=== PATIENT | female | born 1995 | race Caucasian/White ===

== ENCOUNTER 2021-10-03 07:51 | Outpatient (CLI) | payer OTHER, SELFPAY ==
[2021-10-03 08:42] LABS: Basophils Percent Auto 0.2 % (0.2-1.2); Eosinophils Absolute Auto 0.1 K/mm3 (0-0.3); Eosinophils Percent Auto 1.6 % (0-4.4); Hematocrit 44.2 % (37.0-47.0); Hemoglobin 14.3 g/dL (12.0-15.0); Immature Granulocyte Absolute 0.03 K/mm3 (0.00-0.031); Immature Granulocyte Percent A 0.4 % (0-0.5); Lymphocytes Absolute Auto 1.34 K/mm3 (0.9-3.2); Lymphocytes Percent Auto 16.7 % (18.3-44.2); Mean Corpuscular HGB Conc 32.4 g/dl (32-36); Mean Corpuscular Hemoglobin 29.5 pg (26-34); Mean Corpuscular Volume 91.3 fl (80-100); Mean Platelet Volume 9.9 fl (7.4-10.4); Monocytes Absolute Auto 0.4 K/mm3 (0.1-0.6); Monocytes Percent Auto 4.9 % (2.6-8.5); Neutrophils Absolute Auto 6.1 K/mm3 (1.3-6.7); Neutrophils Percent Auto 76.2 % (45.5-73.1); Platelet Count Result 237 k/mm3 (150-375); Red Blood Count 4.84 M/mm3 (4.2-5.4); Red Cell Distribution Width 12.5 % (11.5-14.5)
[2021-10-03 08:58] LABS: Alanine Aminotransferase 22 U/L (6-35); Albumin Level 4.5 g/dL (3.5-5.1); Alkaline Phosphatase 74 U/L (38-126); Anion Gap 11 mmol/L (8-16); Aspartate Amino Transferase 20 U/L (14-36); Bilirubin,Total 0.4 mg/dL (0.2-1.3); Blood Urea Nitrogen 10 mg/dL (7-17); Calcium 9.8 mg/dL (8.4-10.2); Carbon Dioxide 21 mmol/L (22-30); Chloride 104 mmol/L (98-107); Cholesterol 233 mg/dL (0-200); Estimated Glomerular Filt Rate > 60; Glucose 102 mg/dL (65-110); HDL Direct 66 mg/dL; Magnesium 2.1 mg/dL (1.6-2.3); Potassium 4.2 mmol/L (3.4-5.0); Sodium 136 mmol/L (137-145); Triglycerides 186 mg/dL (<150)
[2021-10-03 09:09] LABS: LDL Cholesterol Direct 108 mg/dL
[2021-10-03 09:18] LABS: Vitamin D 25 Hydroxy 58.4 ng/mL
[2021-10-07 10:40] LABS: Red Blood Cell Folate 615 ng/mL RBC (>280)
== END 2021-10-03 07:52 | disposition home or self-care (01) ==
PROVIDERS: PCP Physician Assistant Medical; Visit Provider Physician Assistant Medical
DX: R00.2 Palpitations (principal); E55.9 Vitamin D deficiency, unspecified; E66.9 Obesity, unspecified
CPT/HCPCS: 36415; 80053; 80061; 82306; 82607; 82747; 83735; 84443; 85025

== ENCOUNTER 2024-09-13 04:55 | Inpatient (IN) | payer BC, OTHER, SELFPAY ==
[2024-09-13] VITALS (178 sets, daily range): BP systolic 86–150; BP diastolic 41–101; PULSE 68–153; RESP 14–20; TEMP 36.1–37.2; O2SAT 94–100; BMI 43.4
--- OUTSIDE RECORDS SUMMARY | 2024-09-13 05:12 | XMS_ITS | Data Portability ---
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 Discussed plan. Not available 09/08/2024 12:08:01 Plan of Treatment Reminders Order Date Submit Date Provider Last Modified By Organization Details Last Modified Time Details Appointments INDUCTI ON 2024 05:00A M Samantha Elils CNM Not available Not available Not available U/S OB BPP 2024 10:00A M ULTRASOUND Not available Not available Not available NST 2024 10:30A M NST SCHEDULE Not available Not available Not available OB ROUTINE 2024 11:00A M Samantha Ellis CNM Not available Not available Not available Lab None recorde d. Referral None recorde d. Procedures None recorde d. Surgeries None recorde d. Imaging non-str ess test 2024 025 [email or web address], [address], [place], [address], 09/10/2024 22:04:32 US, obstetr ic, biophys ical profile + non-str ess test 2024 025 [email or web address], [address], [place], [address], 09/09/2024 23:34:31 non-str ess test 2024 025 [email or web address] [address], [address], [place], [address], 09/03/2024 15:01:00 US, obstetr ic, follow- up 2024 [address], [address], [place], [address], 09/01/2024 21:58:37 US, obstetr ic, biophys ical profile + non-str ess test 2024 025 [email or web address], [address], [place], [address], 09/01/2024 21:58:37 Medication Orders None recorde d. Patient TargetsNo targets recorded. Patient InstructionsNo instructions recorded. Reason for Referral None Reported. Results Created Date Observation Date Name Description Value Unit Range Abnormal Flag Note LastModifiedBy Organization Detail LastModifiedTime 08/05/1908/04/2024 CBC W/DIF F WBC 11.4 10'3/ uL 3.5-10 .5 high Not Available [facility] (Lab) [address], [place], [address], 08/05/2024 09:22:27 08/05/1908/04/2024 CBC W/DIF F RBC 4.13 10'6/ uL (based on docume nted legal sex) 3.80-5 .20 Not Available [facility] (Lab) [address], [place], [address], 08/05/2024 09:22:27 08/05/1908/04/2024 CBC W/DIF F HGB 12.1 g/dL (based on docume nted legal sex) 11.6-1 5.4 Not Available [facility] (Lab) [address], [place], [address], 08/05/2024 09:22:27 08/05/1908/04/2024 CBC W/DIF F HCT 37.7 % (based on docume nted legal sex) 34.0-4 5.0 Not Available [facility] (Lab) [address] [facility], [place], [address], 08/05/2024 09:22:27 08/05/19 25 08/04/2024 CBC W/DIF F MCV 91.3 fL 80.0-9 9.0 Not Available [facility] (Lab) [address] [facility], [place], [address], 08/05/2024 09:22:27 08/05/19 25 08/04/2024 CBC W/DIF F MCH 29.3 pg 27.0-3 4.0 Not Available [facility] (Lab) [address] [facility], [place], [address], 08/05/2024 09:22:27 08/05/19 25 08/04/2024 CBC W/DIF F MCHC 32.1 g/dL 32.0-3 5.5 Not Available [facility] (Lab) [address] [facility], [place], [address], 08/05/2024 09:22:27 08/05/1908/04/2024 CBC W/DIF F RDW 14.4 % 11.0-1 5.0 Not Available [facility] (Lab) [address] [facility], [place], [address], 08/05/2024 09:22:27 08/05/19 25 08/04/2024 CBC W/DIF F plt 223 10'3/ uL 150-40 0 Not Available [facility] (Lab) [address] [facility], [place], [address], 08/05/2024 09:22:27 06/13/20 25 08/04/2024 CBC W/DIF F MPV 11.6 fL 8.8-12 .1 Not Available [facility] (Lab) [address] [facility], [place], [address], 08/05/2024 09:22:27 08/05/1908/04/2024 CBC W/DIF F NRBC's 0.0 % 0.0 Not Available [facility] (Lab) [address] [facility], [place], [address], 08/05/2024 09:22:27 08/05/19 25 08/04/2024 CBC W/DIF F absolute NRBCs 0.0 10'3/ uL no refere nce range establ ished Not Available [facility] (Lab) [address], [place], [address], 08/05/2024 09:22:27 08/05/1908/04/2024 CBC W/DIF F neutrophils 79.7 % 34.0-7 3.0 high Not Available [facility] (Lab) [address] [facility], [place], [address], 08/05/2024 09:22:27 08/05/1908/04/2024 CBC W/DIF F lymphocytes 12.8 % 15.0-5 0.0 low Not Available [facility] (Lab) [address] [facility], [place], [address], 08/05/2024 09:22:27 08/05/1908/04/2024 CBC W/DIF F monocytes 5.5 % 1.0-15 .0 Not Available [facility] (Lab) [address] [facility], [place], [address], 08/05/2024 09:22:27 08/05/1908/04/2024 CBC W/DIF F eosinophils 0.7 % 0.0-8. 0 Not Available [facility] (Lab) [address] [facility], [place], [address], 08/05/2024 09:22:27 08/05/1908/04/2024 CBC W/DIF F basophils 0.1 % 0.0-2. 0 Not Available [facility] (Lab) [address], [place], [address], 08/05/2024 09:22:27 08/05/19 25 08/04/2024 CBC W/DIF F immature granulocytes 1.2 % no define d refere nce range Immat ure Granu locyt es (IG) repre sents autom ated enume ratio n of Metam yeloc ytes, Myelo cytes and Promy elocy eugenia when IG is < 5%. Blast s are not inclu ded in IG and repor amanda separ ately if prese nt. Not Available [facility] (Lab) [address], [place], [address], 08/05/2024 09:22:27 08/05/1908/04/2024 CBC W/DIF F absolute neutrophils 9.1 10'3/ uL 1.5-8. 0 high Not Available [facility] (Lab) [address], [place], [address], 08/05/2024 09:22:27 08/05/19 25 08/04/2024 CBC W/DIF F absolute lymphocytes 1.5 10'3/ uL 1.0-4. 0 Not Available [facility] (Lab) [address], [place], [address], 08/05/2024 09:22:27 08/05/1908/04/2024 CBC W/DIF F absolute monocytes 0.6 10'3/ uL 0.2-1. 0 Not Available [facility] (Lab) [address] [place], [address], 08/05/2024 09:22:27 08/05/19 25 08/04/2024 CBC W/DIF F absolute eosinophils 0.1 10'3/ uL 0.0-0. 6 Not Available [facility] (Lab) [address], [place], [address], 08/05/2024 09:22:27 08/05/19 25 08/04/2024 CBC W/DIF F absolute basophils 0.0 10'3/ uL 0.0-0. 3 Not Available [facility] (Lab) [address] [facility], [place], [address], 08/05/2024 09:22:27 08/05/19 25 08/04/2024 CBC W/DIF F absolute immature granulocytes 0.1 10'3/ uL 0.00-0 .10 Refer ence range s for nonbi nary/ inter sex or unspe cifie d gende r patie nts have not been estab lishe d. Pleas e refer to the nurys wing table for range s estab lishe d for cisge nder patie nts and evalu ate in the clini marcel yuliana xt of the indiv idual patie nt: https ://ze kong book. nm.or g/gen derx Not Available [facility] (Lab) [address] [facility], [place], [address], 08/05/2024 09:22:27 08/05/19 25 08/04/2024 CMP(C OMPRE HENSI VE METAB OLIC PANEL ) sodium 136 mmol/ L 133-14 6 Not Available [facility] (Lab) [address] [facility], [place], [address], 08/05/2024 09:22:27 08/05/19 25 08/04/2024 CMP(C OMPRE HENSI VE METAB OLIC PANEL ) potassium 3.8 mmol/ L 3.5-5. 1 Not Available [facility] (Lab) [address] [facility], [place], [address], 08/05/2024 09:22:27 08/05/19 25 08/04/2024 CMP(C OMPRE HENSI VE METAB OLIC PANEL ) chloride 104 mmol/ L 98-107 Not Available [facility] (Lab) [address] [facility], [place], [address], 08/05/2024 09:22:27 08/05/19 25 08/04/2024 CMP(C OMPRE HENSI VE METAB OLIC PANEL ) carbon dioxide 26 mmol/ L 21-31 Not Available [facility] (Lab) [address], [place], [address], 08/05/2024 09:22:27 08/05/19 25 08/04/2024 CMP(C OMPRE HENSI VE METAB OLIC PANEL ) anion gap 6 mmol/ L 4-13 Not Available [facility] (Lab) [address], [place], [address], 08/05/2024 09:22:27 08/05/19 25 08/04/2024 CMP(C OMPRE HENSI VE METAB OLIC PANEL ) blood urea nitrogen 8 mg/dL 7-[address] [facility] (Lab) [address], [place], [address], 08/05/2024 09:22:27 08/05/19 25 08/04/2024 CMP(C OMPRE HENSI VE METAB OLIC PANEL ) creatinine 0.53 mg/dL 0.60-1 .30 low Not Available [facility] (Lab) [address], [place], [address], 08/05/2024 09:22:27 08/05/19 25 08/04/2024 CMP(C OMPRE HENSI VE METAB OLIC PANEL ) egfrcr (CKD-epi 2020) >90 mL/mi n/1.7 3_m2 >=60 Not Available [facility] (Lab) [address], [place], [address], 08/05/2024 09:22:27 08/05/19 25 08/04/2024 CMP(C OMPRE HENSI VE METAB OLIC PANEL ) calcium 9.3 mg/dL 8.3-10 .5 Not Available [facility] (Lab) [address], [place], [address], 08/05/2024 09:22:27 08/05/19 25 08/04/2024 CMP(C OMPRE HENSI VE METAB OLIC PANEL ) glucose 102 mg/dL 70-100 high Not Available [facility] (Lab) [address] [facility], [place], [address], 08/05/2024 09:22:27 08/05/19 25 08/04/2024 CMP(C OMPRE HENSI VE METAB OLIC PANEL ) protein, total 6.2 g/dL 6.4-8. 3 low Not Available [facility] (Lab) [address] [facility], [place], [address], 08/05/2024 09:22:27 08/05/19 25 08/04/2024 CMP(C OMPRE HENSI VE METAB OLIC PANEL ) albumin 3.7 g/dL 3.5-5. 0 Not Available [facility] (Lab) [address] [place], [address], 08/05/2024 09:22:27 08/05/19 25 08/04/2024 CMP(C OMPRE HENSI VE METAB OLIC PANEL ) ALT 8 units /L 9-43 low Not Available [facility] (Lab) [address] [place], [address], 08/05/2024 09:22:27 08/05/19 25 08/04/2024 CMP(C OMPRE HENSI VE METAB OLIC PANEL ) alkaline phosphatase 101 units /L 34-104 Not Available [facility] (Lab) [address] [place], [address], 08/05/2024 09:22:27 08/05/19 25 08/04/2024 CMP(C OMPRE HENSI VE METAB OLIC PANEL ) AST 10 units /L 13-39 low Not Available [facility] (Lab) [address] [place], [address], 08/05/2024 09:22:27 08/05/19 25 08/04/2024 CMP(C OMPRE HENSI VE METAB OLIC PANEL ) bilirubin, total 0.2 mg/dL 0.2-1. 2 Not Available [facility] (Lab) [address] [facility], [place], [address], 08/05/2024 09:22:27 08/05/1908/04/2024 URIC ACID uric acid 4.3 mg/dL 2.3-6. 6 Not Available [facility] (Lab) [address] [facility], [place], [address], 08/05/2024 09:22:28 08/05/19 25 08/04/2024 PROTE IN/CR EATIN INE RATIO , URINE creatinine, urine 161.7 mg/dL R-No refer ence range estab lishe d for this assay Not Available [facility] (Lab) [address] [facility], [place], [address], 08/05/2024 09:22:28 08/05/19 25 08/04/2024 PROTE IN/CR EATIN INE RATIO , URINE protein, urine 21 mg/dL R-No refer ence range estab lishe d for this assay Not Available [facility] (Lab) [address] [place], [address], 08/05/2024 09:22:28 08/05/19 25 08/04/2024 PROTE IN/CR EATIN INE RATIO , URINE protein/crea tinine ratio, urine 0.13 . No Refer ence Range avail able for Rando m Urine s. A prote in to creat inine ratio of >=0.1 9 is a good predi ctor of signi fican t prote inuri a. A level of <0.14 can rule out signi fican t prote inuri a. Not Available [facility] (Lab) [address] [place], [address], 08/05/2024 09:22:28 08/19/19 25 08/18/2024 CULTU RE: GROUP B STREP SCREE N, REFLE X SUSCE PTIBI LITY result report SEE RESULT S BELOW Test: Cultu re: Group B Strep , Refle x Susce ptibi lity ([facility] ) Speci men Sourc e: Vagin a/Rec elio Speci men Type: Vagin al/Re ctal Speci men Date: 2024 1614 Resul t Date: 2024 1404 Resul t Statu s: Final resul t Abnor mal: No Resul ting Lab: [facility] [address] [facility] [address] Tel: CULTU RE ----- ----- ----- --- No Group B strep isola amanda at 2 days (estee ctive broth enhan cemen t) Not Available [facility] (Lab) [address] [facility], [place], [address], 08/21/2024 15:07:39 08/05/19 25 08/04/2024 US, obstdannie tric, follo w-up No observ ation record ed. [facility] [address], [place], [address], 08/04/2024 18:40:44 08/05/19 25 08/04/2024 US, gordon auguste, bioph ysica l profi le No observ ation record ed. [facility] [address], [place], [address], 08/04/2024 18:40:55 08/05/19 25 08/04/2024 US, gordon tric, follo w-up No observ ation record ed. [email or web address] [facility], [place], [address], 08/09/2024 17:07:15 08/08/19 25 08/07/2024 non-s tress test No observ ation record ed. [email or web address] [address], [place], [address], 08/07/2024 11:46:38 08/08/19 25 08/04/2024 non-s tress test No observ ation record ed. [email or web address] Not Available 08/07 11:48:34 08/12/19 25 08/11/2024 US, obste tric, bioph ysica l profi le + non-s tress test No observ ation record ed. [email or web address] [address], [place], [address], 08/11/2024 17:27:45 08/12/19 25 08/11/2024 US, obste tric, bioph ysica l profi le + non-s tress test No observ ation record ed. [email or web address] [address], [place], [address], 08/15/2024 15:20:47 08/15/19 25 08/11/2024 non-s tress test No observ ation record ed. [address], [place], [address], 08/14/2024 08:50:42 08/15/1908/11/2024 non-s tress test No observ ation record ed. [email or web address] [address], [place], [address], 08/14/2024 11:55:03 08/19/19 25 08/21/2024 US, obste tric, bioph ysica l profi le + non-s tress test No observ ation record ed. [email or web address] [address], [place], [address], 08/21/2024 12:14:22 08/19/19 25 08/18/2024 US, obste tric, follo w-up No observ ation record ed. [email or web address] [address], [place], [address], 08/21/2024 08:42:18 08/22/19 25 08/21/2024 non-s tress test No observ ation record ed. [email or web address], [place], [address], 08/21/2024 17:58:22 08/25/19 25 08/24/2024 US, obste tric, bioph ysica l profi le + non-s tress test No observ ation record ed. [email or web address] [address], [place], [address], 08/24/2024 16:02:10 08/25/19 25 08/24/2024 US, obste tric, bioph ysica l profi le + non-s tress test No observ ation record ed. [facility] [address], [place], [address], 08/24/2024 16:57:33 08/29/19 25 08/28/2024 non-s tress test No observ ation record ed. [email or web address], [place], [address], 08/28/2024 09:09:00 09/02/19 25 09/01/2024 US, obste tric follo w-up No observ ation record ed. [facility] [address], [place], [address], 09/01/2024 17:48:48 09/02/19 25 09/01/2024 US, obste tric, bioph ysica l profi le + non-s tress test No observ ation record ed. [facility] [address], [place], [address], 09/01/2024 17:49:00 09/02/19 25 09/01/2024 US, obste tric, follo w-up No observ ation record ed. [email or web address] [address], [place], [address], 09/04/2024 23:06:06 09/02/19 25 09/01/2024 non-s tress test No observ ation record ed. [email or web address] [address], [place], [address], 09/01/2024 15:27:15 09/09/19 25 09/08/2024 US, obste tric, bioph ysica l profi le + non-s tress test No observ ation record ed. [email or web address] [address], [place], [address], 09/08/2024 17:49:39 09/09/1909/08/2024 US, obste tric, follo w-up No observ ation record ed. [address], [place], [address], 09/11/2024 20:57:03 09/09/1909/08/2024 non-s tress test No observ ation record ed. [address], [place], [address], 09/08/2024 12:00:50 Result Notes None recorded. Problems Name Problem SNOMED Code Status Onset Date Resolution Date Notes Provider Name and Address Organization Details Recorded Time 28558215 Active 2024 Gabriella hunt [facility] 20:02:03 Mixed anxiety and depressive disorder 531938971 Active 2024 Gabriella hunt [facility] 20:02:26 Polyhydramnio s 77002171 Active 2024 mild Faby hunt [facility] 20:57:37 Polyhydramnio s 64629931 Active 2024 mild Faby Lambert [facility] 20:57:37 Problem Notes None recorded. Procedures Surgical History Date Name Laterality Status Provider Name and Address Organization Details Recorded Time 02/07/20 24 Date of Last Pap Smear completed [facility] 07/07/2024 19:54:23 03/19/19 24 Endometrial Biopsy completed [facility] 07/07/2024 19:58:32 03/09/19 24 Colposcopy completed [facility] 06/30/2024 09:38:54 03/09/19 24 Colposcopy completed [facility] 06/30/2024 09:43:29 03/08/19 24 procedure on gallbladder completed [facility] 07/07/2024 19:59:29 10/17/19 23 cholecystectomy completed [facility] 06/30/2024 09:44:34 02/22/19 14 extraction of wisdom tooth completed [facility] 07/07/2024 20:00:24 Imaging Results None recorded. Procedure Notes None recorded. Medical Equipment None Reported. Allergies Allergen ID Allergen Name Allergen Category Reaction Reaction Severity Criticality Documentation Date Start Date Code Code System Note Provider Name and Address Organization Details Recorded Time 80212 amoxicill in medicatio n rash moderate Not available 07/07/2024 723 RxNorm Gabriella Kay [facility] 19:53:51 76350 Penicilli n Not available rash moderate Not available 07/07/2024 76574 RxNorm Gabriellailan Kay [facility] 05/16/202 5 19:53:51 Medications Name Sig Start Date Stop Date Status Note LastModified by Organization Details LastModified Time active Not Available Not Avai lable Not Available Baby Aspirin active Not Available Not Available Not Available Vitals Date Recorded Body height Body mass index (BMI) Body weight Systolic And Diastolic Provider Name and Address Organization Details Last Updated DateTime 09/01/2024 160.02 cm 43 kg/m2 994427.95 g 132/79 mm[Hg] [facility] 09/01/2024 14:44:00 Date Recorded Body height Body mass index (BMI) Body weight Systolic And Diastolic Provider Name and Address Organization Details Last Updated DateTime 09/08/2024 160.02 cm 43.8 kg/m2 941533.32 g 130/85 mm[Hg] [facility] 09/08/2024 10:34:40 Social History Question Answer Notes LastModified by Organizat ion Details LastModified Time Tobacco Smoking Status [facility]24 19:57:44 Do You Have An Advance Directive? No Information not available 07/07/2024 If You Are , What Was Your Level Of Alcohol Consumption Prior To ? Occasional [email or web address] Information not available 07/07/2024 How Many Years Have You Consumed Alcohol? 7 [email or web address] Information not available 07/07/2024 Are You Blind Or Do You Have Difficulty Seeing? No [email or web address] Information not available 07/07/2024 What Is Your Level Of Caffeine Consumption? Occasional [email or web address] Information not available 07/07/2024 How Much Tobacco Do You Chew? None [email or web address] Information not available 07/07/2024 In The 14 Days Before Symptom Onset, Have You Had Close Contact With A Laboratory-confir med COVID-19 While That Case Was Ill? No [email or web address] Information not available 07/07/2024 In The 14 Days Before Symptom Onset, Have You Had Close Contact With A Person Who Is Under Investigation For COVID-19 While That Person Was Ill? No Information not available 07/07/2024 Have You Been To An Area Known To Be High Risk For COVID-19? No [email or web address] Information not available 07/07/2024 Are You Deaf Or Do You Have Serious Difficulty Hearing? No [email or web address] Information not available 07/07/2024 What Type Of Diet Are You Following? REGULAR [email or web address] Information not available 07/07/2024 What Is The Highest Grade Or Level Of School You Have Completed Or The Highest Degree You Have Received? [id number] [email or web address] Information not available 07/07/2024 Are There Any Guns Present In Your Home? Yes [email or web address] Information not available 07/07/2024 Do You Use Protection During Sex? No [email or web address] Information not available 07/07/2024 Do You Use Your Seat Belt Or Car Seat Routinely? Yes Information not available 07/07/2024 Do You Have Smoke And Carbon Monoxide Detectors In Your Home? Yes [email or web address] Information not available 07/07/2024 At What Age Did You Start Smoking Tobacco? 18 [email or web address] Information not available 07/07/2024 How Much Tobacco Do You Smoke? No [email or web address] Information not available 07/07/2024 Do You Use Sunscreen Routinely? No [email or web address] Information not available 07/07/2024 How Many Years Have You Smoked Tobacco? 2 [email or web address] Information not available 07/07/2024 Have You Used IV Drugs? No Information not available 07/07/2024 Do You Have Difficulty Walking Or Climbing Stairs? No [email or web address] Information not available 07/07/2024 Sex: Unknown Functional Status Question Answer Note LastModified by Organizat ion Details LastModified Time Do you use any illicit or recreational drugs? No [email or web address] Information not available 07/07/2024 Do you or have you ever used any other forms of tobacco or nicotine? Yes [email or web address] Information not available 07/07/2024 What is your level of alcohol consumption? None [email or web address] Information not available 07/07/2024 Are you able to walk? YESWOREST [email or web address] Information not available 07/07/2024 Are you able to care for yourself? 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 No [email or web address] Information not available 07/07/2024 Do you or have you ever used e-cigarettes or vape? Former user of electronic cigarettes [email or web address] Information not available 07/07/2024 What is your exercise level? None [email or web address] Information not available 07/07/2024 Mental Status Question Answer Note LastModified by Organization D etails LastModified Time Do you feel stressed (tense, restless, nervous, or anxious, or unable to sleep at night)? [id number] [email or web address] Information not available 07/07/2024 Family History Relationship Description Onset Age of this Age Resolved Age Notes LastModified by Organization Details LastModified Time Mother Anxiety disorder [email or web address] Not available 07/07 19:53:51 Mother Depressive disorder [email or web address] Not available 07/07 19:57:18 Paternal Uncle Substance abuse [email or web address] Not available 2024 14:04:57 Brother Anxiety disorder Not available 07/07 19:53:51 Brother Diabetes mellitus [email or web address] Not available 07/07 19:53:51 Maternal Grandfather Heart disease [email or web address] Not available 07/07 19:53:51 Paternal Grandfather Heart disease [email or web address] Not available 07/07 19:53:51 Paternal Grandfather Diabetes mellitus [email or web address] Not available 07/07 19:53:51 Medical History Condition Response Allergies (Food, seasonal, environmental ) N Other N Breast Cancer N Drug/Latex Allergies/Reactions N Blood Transfusion N Dermatologic Disorders Y Lung Disease N Defects or Inherited Disease N Breast Problem N Gestational Diabetes N Hematologic disorders N Anesthesia Complications N History of STI N Deep Vein Thrombosis N Polycystic ovary syndrome N Anxiety Disorder Y Autoimmune disease N Arthritis N Infertility N Polyps N Acid Reflux (GERD) N History of abnormal pap Y Cancer N Stroke N Varicosities N Neurologic/Epilepsy N Endometriosis N High Cholesterol N Headaches N Fibromyalgia N Kidney Disease N Heart Problems N Kidney or Bladder Problems N Thyroid Problems N GI Problems N Eating Disorder N Anemia N Art (IVF or FET) N Psychiatric Illness N Ovarian Cancer N Diabetes N Pulmonary (TB, Asthma) N Hepatitis/Liver Disease N No Past Medical History N Eczema N Urinary Tract Infection N Abuse/Domestic Violence N Asthma N Trauma/Violence N Depression/ depression Y Heart Disease N Pre-Eclampsia N Hypertension N Osteoporosis N Thrombophilias N Gynecological History Statement/Question Response Abnormal Pap Y Date of Last Mammogram Date of LMP 11/19/2023 N On BCP's at Conception? N STIs/STDs N Was last menstrual period normal Y HPV Vaccine Y Colposcopy 03/09/2023 Duration of Flow (days) 4 Current Control Method Date of Last Colonoscopy Frequency of Cycle (Q days) 28 Sexually Active? Y Date of DEXA bone scan Age of first menstrual cycle 7 Date of Last Pap Smear 02/07/2024 Sexual Problems? N LMP Unknown Desired Control Method None N Obstetrics History GPAL:G 1 P 0 0 0 0 Type Value Living 0 Total 1 Past Encounters Encounter ID Performer Location Encounter Start Date Encounter Closed Date Diagnosis/Indication Diagnosis SNOMED-CT Code Diagnosis ICD10 Code Diagnosis Note [id number] Samantha Ellis [facility] [address],[place] [address] 07/07/2024 09:32:06 07/12/2024 06:17:44 Gestation period, 30 weeks [id number] Z3A.30 [id number] Nik Grubbs MD [facility] [address],[place] [address] 07/22/2024 10:43:10 07/22/2024 11:21:18 Third trimester 62215015 Z34.03 [id number] Nik Grubbs MD [facility] [address],[place] [address] 08/04/2024 15:29:17 08/04/2024 16:42:55 Excessive weight gain during 1208686664 O99.210 O40.9XX0 Z3A.33 [id number] [facility] [address],[place] [address] 08/04/2024 15:50:33 08/07/2024 06:28:39 Gestation period, 33 weeks 14894380 Z3A.33 [id number] Samantha Ellis [facility] [address],[place] [address] 08/07/2024 11:43:22 08/07/2024 12:15:15 Polyhydramnios 46172537 O40.3XX0 [id number] Samantha Ellis [facility] [address],[place] [address] 08/11/2024 11:27:13 08/14/2024 09:18:19 Polyhydramnios 95230767 O40.3XX0 [id number] Samantha Ellis [facility] [address],[place] [address] 08/11/2024 11:27:36 08/11/2024 12:54:14 Gestation period, 34 weeks 87581214 Z3A.34 [id number] Nik Grubbs MD [facility] [address],[place] [address] 08/11/2024 11:28:08 08/11/2024 13:18:48 Maternal obesity complicating , childbirth and the puerperium, antepartum 5124095682 07 O99.210 O40.3XX0 Z3A.34 [id number] Nik Grubbs MD [facility] [address],[place] [address] 08/18/2024 08:57:45 08/18/2024 09:21:38 Polyhydramnios [id number] O40.3XX0 O99.210 Z3A.35 [id number] SANTIAGO OGDEN MD [facility] [address],[place] [address] 08/18/2024 08:58:09 08/22/2024 09:51:37 Polyhydramnios 14220908 O40.9XX0 [id number] Samantha Ellis [facility] [address],[place] [address] 08/18/2024 08:58:25 08/18/2024 11:01:33 Gestation period, 35 weeks 50888644 Z3A.35 [id number] SANTIAGO OGDEN MD [facility] [address],[place] [address] 08/24/2024 14:04:36 08/24/2024 15:48:14 Maternal obesity complicating , childbirth and the puerperium, antepartum 1228548496 07 O99.210 O40.3XX0 Z3A.36 [id number] SANTIAGO OGDEN MD [facility] [address],[place] [address] 08/24/2024 14:04:53 08/28/2024 09:35:36 Polyhydramnios [id number] O40.9XX0 [id number] SANTIAGO OGDEN MD [facility] [address],[place] [address] 08/24/2024 14:07:32 08/24/2024 15:47:18 Polyhydramnios [id number] O40.9XX0 Gestation period, 36 weeks 23589442 Z3A.36 [id number] Nik Grubbs MD [facility] [address],[place] [address] 09/01/2024 13:27:50 09/01/2024 14:28:05 Maternal obesity complicating , childbirth and the puerperium, antepartum [id number] 07 O99.210 O40.3XX0 Z3A.37 [id number] [facility] [address],[place] [address] 09/01/2024 13:28:09 09/01/2024 15:30:52 Polyhydramnios 88607353 O40.9XX0 [id number] [facility] [address],[place] [address] 09/01/2024 13:28:25 09/01/2024 15:13:02 Gestation period, 37 weeks 56971617 Z3A.37 [id number] Nik Grubbs MD [facility] [address],[place] [address] 09/08/2024 10:24:16 09/08/2024 11:00:25 Maternal obesity complicating , childbirth and the puerperium, antepartum 3480302257 07 O99.210 O40.3XX0 Z3A.38 [id number] [facility] [address],[facility] [place] [address] 09/08/2024 10:24:35 09/08/2024 13:41:24 Polyhydramnios 13920163 O40.9XX0 [id number] [facility] [address],[facility] [place] [address] 09/08/2024 10:24:49 09/08/2024 12:08:50 Gestation period, 38 weeks 44398854 Z3A.38 Health Concerns Section Related Observation LastModified by Organization Detai ls LastModified Time None Recorded Concern Status LastModified by Organization Details LastModified Time None Recorded Advance Directives Directive N: Payers Insurance Date Sequence Insurance Name Policy Number Policy Amato Covered Member ID Amato Member ID Guarantor Name 09/12/2024 2 [facility] (PPO) [id number] Mau Skelt [id number] Brielle Skelt 09/12/2024 2 [facility] [id number] Brielle Skelt [id number] Brielle Skelt 09/12/2024 1 [facility] (POS) [id number] Brielle Skelt [id number] Brielle Skelt OBGyn Episode Ob Episode Information Episode Created Date Number of Fetuses Patient Bloodtype Patient rh Status Prepregnancy Weight lbs Domestic Partner Domestic Partner Phone Father Name Computer Systems Support Specialist Status 07/08/19 25 1 O Negative 214 Mau Sklet OPEN Fetus Data First Name Last Name Admitted to NICU Weight (g) Sex Living Outcome Pediatric Complications Fetus ID Race Codes Race Delivery Type [id number] Problems Problem Notes Problem Name Start Date End Date Resolution Snomed Code Not e Mixed anxiety and depressive disorder 07/07/2024 [id number] Polyhydramnios 08/04/2024 [id number] mild Dheeraj Calculation Initial Dheeraj Date Initial Exam Date Initial Exam Provider Initial Ultrasound Date Last Menstrual Period Date Ultra Sound Weeks Gestation 08/25/2024 07/07/2024 [email or web address] 02/09/2024 11/19/2023 0 Eighteen To Twenty Week Dheeraj Update Ultra Sound Date Fundal Height At Umbil Quickening Date Ultra Sound Latest Weeks Gestation Final Dheeraj Confirmed By Final Dheeraj Confirmed Date Final Dheeraj Date Ultra Sound Latest Days Gestation 0 [email or web address] 07/22/2024 09/19/19 25 0 Pre-dolores Flowsheet Flowsheet Date 07/07/2024 Rubi Score Blood Edema Fundus Height Fundus Units Glucose Ketones Leukocytes Nitrite Labor Signs Protein Cervic Dilation Cervic Effacement Cervic Station neg trace Type Weight in lbs Pre/Post Dialysis Refused Weight 226.106584853188 BP Diastolic BP Location Tested BP Systolic BP Type 82 123 Fetus Heart Rate Present Fetus Movement A Yes Comments Patient is transfer of care from [facility]. Patient did glucose yesterday at [facility] in [place] sending records request. Patient states that has lump that is painful in upper abdominal area, swelling, not today, will continue to monitor, reviewed US SGA plan MFM consult. precautions and education, get rhogam confirmation plan 2 week f/u Flowsheet Date 07/22/2024 Rubi Score Blood Edema Fundus Height Fundus Units Glucose Ketones Leukocytes Nitrite Labor Signs Protein Cervic Dilation Cervic Effacement Cervic Station Type Weight in lbs Pre/Post Dialysis Refused Weight 231.718110444820 BP Diastolic BP Location Tested BP Systolic BP Type 82 L arm 127 sitting Fetus Heart Rate Present A 145 Fetus Movement A Yes Comments no complaints, no problems, routine care, no contractions, no vaginal bleeding, no loss of fluid, no cramping Flowsheet Date 08/04/2024 Rubi Score Blood Edema Fundus Height Fundus Units Glucose Ketones Leukocytes Nitrite Labor Signs Protein Cervic Dilation Cervic Effacement Cervic Station Type Weight in lbs Pre/Post Dialysis Refused BP Diastolic BP Location Tested BP Systolic BP Type Fetus Heart Rate Present Fetus Movement Comments Flowsheet Date 08/04/2024 Rubi Score Blood Edema Fundus Height Fundus Units Glucose Ketones Leukocytes Nitrite Labor Signs Protein Cervic Dilation Cervic Effacement Cervic Station neg none Type Weight in lbs Pre/Post Dialysis Refused 236.041798884452 BP Diastolic BP Location Tested BP Systolic BP Type 83 141 Fetus Heart Rate Present Fetus Movement A Yes Comments Patient is having BH contrac tions, pain, and discharge. discussed polyhydramnios, LGA, gct was wnl, plan weekly testing, remind to call for preadmit next visit. +FM, f/u one week bp elevated dhaliwal occ , try tylenol if dhaliwal persists to ld for eval check labs today precautions reviewed Flowsheet Date 08/04/2024 Rubi Score Blood Edema Fundus Height Fundus Units Glucose Ketones Leukocytes Nitrite Labor Signs Protein Cervic Dilation Cervic Effacement Cervic Station Type Weight in lbs Pre/Post Dialysis Refused Weight 236.816365622546 BP Diastolic BP Location Tested BP Systolic BP Type 83 141 Fetus Heart Rate Present Fetus Movement Comments Flowsheet Date 08/11/2024 Rubi Score Blood Edema Fundus Height Fundus Units Glucose Ketones Leukocytes Nitrite Labor Signs Protein Cervic Dilation Cervic Effacement Cervic Station Type Weight in lbs Pre/Post Dialysis Refused BP Diastolic BP Location Tested BP Systolic BP Type Fetus Heart Rate Present Fetus Movement Comments Flowsheet Date 08/11/2024 Rubi Score Blood Edema Fundus Height Fundus Units Glucose Ketones Leukocytes Nitrite Labor Signs Protein Cervic Dilation Cervic Effacement Cervic Station Type Weight in lbs Pre/Post Dialysis Refused Weight 237.7049359238 BP Diastolic BP Location Tested BP Systolic BP Type 82 139 Fetus Heart Rate Present Fetus Movement Comments Flowsheet Date 08/11/2024 Rubi Score Blood Edema Fundus Height Fundus Units Glucose Ketones Leukocytes Nitrite Labor Signs Protein Cervic Dilation Cervic Effacement Cervic Station neg none Type Weight in lbs Pre/Post Dialysis Refused Weight 237.0310520579 BP Diastolic BP Location Tested BP Systolic BP Type 82 134 Fetus Heart Rate Present Fetus Movement A Yes Comments Patient states that is not s leeping, contractions, swelling and nausea. NST R, ok for uniso, US today, call for preadmit, precautions and education Flowsheet Date 08/18/2024 Rubi Score Blood Edema Fundus Height Fundus Units Glucose Ketones Leukocytes Nitrite Labor Signs Protein Cervic Dilation Cervic Effacement Cervic Station Type Weight in lbs Pre/Post Dialysis Refused BP Diastolic BP Location Tested BP Systolic BP Type Fetus Heart Rate Present Fetus Movement Comments Flowsheet Date 08/18/2024 Rubi Score Blood Edema Fundus Height Fundus Units Glucose Ketones Leukocytes Nitrite Labor Signs Protein Cervic Dilation Cervic Effacement Cervic Station Type Weight in lbs Pre/Post Dialysis Refused BP Diastolic BP Location Tested BP Systolic BP Type Fetus Heart Rate Present Fetus Movement Comments Flowsheet Date 08/18/2024 Rubi Score Blood Edema Fundus Height Fundus Units Glucose Ketones Leukocytes Nitrite Labor Signs Protein Cervic Dilation Cervic Effacement Cervic Station Type Weight in lbs Pre/Post Dialysis Refused 237.538339441456 BP Diastolic BP Location Tested BP Systolic BP Type 79 L arm 118 sitting Fetus Heart Rate Present Fetus Movement A Yes Comments +FM, GBS collected, reviewed US, mild polyhydramnios, education and precautions f/u one week Flowsheet Date 08/24/2024 Rubi Score Blood Edema Fundus Height Fundus Units Glucose Ketones Leukocytes Nitrite Labor Signs Protein Cervic Dilation Cervic Effacement Cervic Station Type Weight in lbs Pre/Post Dialysis Refused BP Diastolic BP Location Tested BP Systolic BP Type Fetus Heart Rate Present Fetus Movement Comments Flowsheet Date 08/24/2024 Rubi Score Blood Edema Fundus Height Fundus Units Glucose Ketones Leukocytes Nitrite Labor Signs Protein Cervic Dilation Cervic Effacement Cervic Station Type Weight in lbs Pre/Post Dialysis Refused BP Diastolic BP Location Tested BP Systolic BP Type Fetus Heart Rate Present Fetus Movement Comments Flowsheet Date 08/24/2024 Rubi Score Blood Edema Fundus Height Fundus Units Glucose Ketones Leukocytes Nitrite Labor Signs Protein Cervic Dilation Cervic Effacement Cervic Station Type Weight in lbs Pre/Post Dialysis Refused 241.49113465697 BP Diastolic BP Location Tested BP Systolic BP Type 79 L arm 128 sitting Fetus Heart Rate Present A 150 Fetus Movement A Yes Comments Good movement. No cram ping or bleeding. Having some bilateral leg swelling. Irregular contractions. No bleeding. Preadmission done. Would like induction at 39 weeks, will schedule with SP. BPP 12/01, Stable poly. RTC 1 week. Flowsheet Date 09/01/2024 Rubi Score Blood Edema Fundus Height Fundus Units Glucose Ketones Leukocytes Nitrite Labor Signs Protein Cervic Dilation Cervic Effacement Cervic Station Type Weight in lbs Pre/Post Dialysis Refused BP Diastolic BP Location Tested BP Systolic BP Type Fetus Heart Rate Present Fetus Movement Comments Flowsheet Date 09/01/2024 Rubi Score Blood Edema Fundus Height Fundus Units Glucose Ketones Leukocytes Nitrite Labor Signs Protein Cervic Dilation Cervic Effacement Cervic Station Type Weight in lbs Pre/Post Dialysis Refused BP Diastolic BP Location Tested BP Systolic BP Type Fetus Heart Rate Present Fetus Movement Comments Flowsheet Date 09/01/2024 Rubi Score Blood Edema Fundus Height Fundus Units Glucose Ketones Leukocytes Nitrite Labor Signs Protein Cervic Dilation Cervic Effacement Cervic Station Type Weight in lbs Pre/Post Dialysis Refused Weight 243.698100202334 BP Diastolic BP Location Tested BP Systolic BP Type 79 L arm 132 sitting Fetus Heart Rate Present Fetus Movement Comments polyhydramnios, at 27cm , IO L scheduled for 39 weeks efw 94% precautions and education +FM f/u here in one week Flowsheet Date 09/08/2024 Rubi Score Blood Edema Fundus Height Fundus Units Glucose Ketones Leukocytes Nitrite Labor Signs Protein Cervic Dilation Cervic Effacement Cervic Station Type Weight in lbs Pre/Post Dialysis Refused BP Diastolic BP Location Tested BP Systolic BP Type Fetus Heart Rate Present Fetus Movement Comments Flowsheet Date 09/08/2024 Rubi Score Blood Edema Fundus Height Fundus Units Glucose Ketones Leukocytes Nitrite Labor Signs Protein Cervic Dilation Cervic Effacement Cervic Station Type Weight in lbs Pre/Post Dialysis Refused BP Diastolic BP Location Tested BP Systolic BP Type Fetus Heart Rate Present Fetus Movement Comments Flowsheet Date 09/08/2024 Rubi Score Blood Edema Fundus Height Fundus Units Glucose Ketones Leukocytes Nitrite Labor Signs Protein Cervic Dilation Cervic Effacement Cervic Station Type Weight in lbs Pre/Post Dialysis Refused Weight 247.712954217670 BP Diastolic BP Location Tested BP Systolic BP Type 85 L arm 130 sitting Fetus Heart Rate Present Fetus Movement A Yes Comments bpp 8/8, doing well educatio n and precautions +FM, IOL next week Menstrual History Last Menstrual Date Menses Monthly On Bcp Conception Prior Menses Frequency Hcg Plus Date Menarche Onset Age 0911/19/2023 Delivery Information Delivery Date Delivery Type Labor Anesthesia Weeks Gestation Incision Type Labor Labor Length Hrs Delivered By Post Complications Tubal Sterilization Discharge Date Comments Discharge Information Feeding Method Contraceptive Method Maternal HG B and HCT Levels
--- OUTSIDE RECORDS SUMMARY | 2024-09-13 05:12 | XMS_ITS | Clinical Summary ---
Author Organization [facility] Address [facility] [place] [address] Care Team Providers Care Eyeglass Maker Name Role Phone Millie Bell Primary Care Provider [phone] Encounters Date Type Department Care Team Description 07/06/2024 7:10 AM CDT - 07/06/2024 11:59 PM CDT Hospital Encounter [facility] [address] [place] [address] Marlene Villafuerte CNM Discharge Disposition: Home or Self Care (Routine Discharge) 07/06/2024 Orders Only [facility] [address] [place] [address] Marlene Villafuerte CNM 07/06/2024 Travel from Last 3 Months Social History Tobacco Use Types Packs/Day Years Used Date Smoking Tobacco: Never Assessed Estimated Date of Delivery Comme nts Yes 09/18/2024 Based on Other B asis Sex and Gender Information Value Date Recorded Sex Assigned at Not on file Legal Sex Female 1:29 PM CDT Gender Identity Not on file Sexual Orientation Not on file Last Filed Vital Signs Vital Sign Reading Time Taken Comments Blood Pressure - - Pulse - - Temperature - - Respiratory Rate - - Oxygen Saturation - - Inhaled Oxygen Concentration - - Weight 97.1 kg (214 lb) 07/18/2024 11:00 AM CDT Height 161.3 cm (5' 3.5) 07/18/2024 11:00 AM CD T Body Mass Index 37.31 07/18/2024 11:00 AM CDT Plan of Treatment Health Maintenance Due Date Last Done Comments Cervical Cancer Screening Pa p Smear (Age 21 to 29) Every 3 Years 1995 Cervical Cancer Screening 1995 Annual Physical 09/28/1998 DTaP, Tdap and Td Vaccines ( 1 - Tdap) 09/28/2014 Hepatitis B Vaccines (1 of 3 - 19+ 3-dose series) 09/28/2014 HPV Vaccines (3 - 3-dose series) 12/02/2016 09/09/2016, 02/23/2016 COVID-19 Vaccine (2023-2 5 season) 2023 02/23/2020 Hepatitis C Completed 02/09/2024 Meningococcal B Vaccine Aged Out No l onger eligible based on patient's age to complete this topic Meningococcal Vaccine Aged Out No erlin sheri eligible based on patient's age to complete this topic Pneumococcal Vaccine: Pediatrics (0 to 5 Years) and At-Risk Patients (6 to 49 Years) Aged Out No longer eligible b ased on patient's age to complete this topic RSV Immunization or 60+ Years (No Doses Required) Completed RSV Immunizations Under 20 Months Aged Out No longer eligible b ased on patient's age to complete this topic Procedures Procedure Name Priority Date/Time Associated Diagnosis Comments ANTIBODY SCREEN Routine 07/06/2024 8:24 AM CDT Encounter for screening of mother (HHS/HCC) GLUCOSE, GESTATIONAL SCREEN Routine 07/06/2024 8:24 AM CDT Encounter for screening of mother (HHS/HCC) SYPHILIS AB (DIAGNOSTIC) WITH CASCADING REFLEX Routine 07/06/2024 8:24 AM CDT Encounter for screening of mother (HHS/HCC) HIV 1 ANTIGEN(S), WITH HIV-1 AND HIV-2 ANTIBODIES Routine 07/06/2024 8:24 AM CDT Encounter for screening of mother (HHS/HCC) CBC W/DIFF AUTOMATED Routine 07/06/2024 8:24 AM CDT Encounter for screening of mother (HHS/HCC) HEPATITIS C ANTIBODY Routine 02/09/2024 from Last 3 Months or Most Recently Relevant to Health Maintenance Results * SYPHILIS AB (DIAGNOSTIC) WITH CASCADING REFLEX (07/06/2024 8:24 AM CDT) SYPHILIS IGG IGM AB NON-REACTI VE NON-REACTI VE 07/06/2024 3:29 PM CDT [facility] Comment: No serologic evidence of syphilis. No follow-up necessary unless clinically indicated. 07/06/2024 8:24 AM CDT Marlene Villafuerte [facility] Final Result Performing Organization Address [facility]/ZIP Co de Phone Number [facility] [address] [place] [address], [place] [phone] * GLUCOSE, GESTATIONAL SCREEN (07/06/2024 8:24 AM CDT) AMOUNT GIVEN 50 g 07/06/2024 9:34 AM CDT [facility] GLUCOSE 1 HOUR POST DOSE 110 <140 mg/dL 07/06/2024 9:42 AM CDT [facility] 07/06/2024 8:24 AM CDT Marlenemarni Villafuerte [facility] Final Result [facility] [address] [place] [address], [place] [phone] * HIV 1 ANTIGEN(S), WITH HIV-1 AND HIV-2 ANTIBODIES (07/06/2024 8:24 AM CDT) HIV 1/2 AB+ HIV1 P24 AG NON-REACTI VE NON-REACTI VE 07/06/2024 3:46 PM CDT [facility] 07/06/2024 8:24 AM CDT [facility] Final Result [facility] [address] [place] [address], [place] [phone] * ANTIBODY SCREEN (07/06/2024 8:24 AM CDT) ANTIBODY SCREEN NEGATIVE 07/06/2024 9:30 AM CDT [facility] 07/06/2024 8:24 AM CDT Marlene [facility] BLOOD BANK TEST ORDERABLES F inal Result Performing Organization Address City/[facility]/ZIP Co de Phone Number [facility] [address] [place] [address], [place] [phone] * (ABNORMAL) CBC W/DIFF AUTOMATED (07/06/2024 8:24 AM CDT) WBC 11.33(H) 4.4 - 11.0 x10'3/uL 07/06/2024 8:55 AM CDT [facility] RBC 4.10(L) 4.50 - 5.10 x10'6/uL 07/06/2024 8:55 AM CDT [facility] HGB 12.6 12.3 - 15.3 G/DL 07/06/2024 8:55 AM CDT [facility] HCT 37.3 35.9 - 44.6 % 07/06/2024 8:55 AM CDT [facility] MCV 91.0 80.0 - 96.0 FL 07/06/2024 8:55 AM CDT [facility] MCH 30.7 25.3 - 30.9 PG 07/06/2024 8:55 AM T [facility] MCHC 33.8 31.0 - 34.1 G/DL 07/06/2024 8:55 AM T [facility] RDW 13.9 12.4 - 15.1 % 07/06/2024 8:55 AM T [facility] PLT 210 151 - 353 x10'3/uL 07/06/2024 8:55 AM T [facility] MPV 10.7 9.6 - 12.0 FL 07/06/2024 8:55 AM T [facility] RBC MORPHOLOGY NORMAL 07/06/2024 8:55 AM T [facility] PLT MORPH. NORMAL 07/06/2024 8:55 AM T [facility] WBC MORPHOLOGY NORMAL 07/06/2024 8:55 AM T [facility] LYMPHOCYTES % 10.1(L) 15.8 - 45.0 % 07/06/2024 8:55 AM T [facility] NEUTROPHILS % 84.3(H) 42.1 - 71.9 % 07/06/2024 8:55 AM T [facility] MONOCYTES % 4.1(L) 5.7 - 12.5 % 07/06/2024 8:55 AM T [facility] EOSINOPHILS 0.6 0.0 - 5.6 % 07/06/2024 8:55 AM T [facility] BASOPHILS 0.2 0.0 - 1.3 % 07/06/2024 8:55 AM T [facility] ABS. NEUTROPHILS 9.55(H) 1.40 - 6.00 x10'3/uL 07/06/2024 8:55 AM CDT [facility] IMMATURE GRANS % 0.7(H) 0.0 - 0.5 % 07/06/2024 8:55 AM CDT [facility] ABS. LYMPHOCYTES 1.14 0.80 - 4.70 x10'3/uL 07/06/2024 8:55 AM CDT [facility] 07/06/2024 8:24 AM CDT us Marlene [facility] Final Result [facility] [address] [place] [address], * HEPATITIS C ANTIBODY (02/09/2024) HEPATITIS C AB non-reacti ve us Default History Genericprovider LABORATORY Final Result from Last 3 Months or Most Recently Relevant to Health Maintenance Insurance Care Teams Eyeglass Maker Relationship Specialty Start Date End Date Millie Bell PA [address] [place] [address] PCP - General PHYSICIAN RESOURCE CONSERVATION MANAGER 10/19/22
--- OUTSIDE RECORDS SUMMARY | 2024-09-13 05:12 | XMS_ITS | Clinical Summary ---
Author Organization [facility] [address] Address [address] [place] [id number] Care Team Providers Care Shim Plug Cutter Name Role Phone Unknown, Notinfile Primary Care Provider Unavail able Adan Cantrell MD Unavailable [phone] Allergies Active Allergy Reactions Criticality Noted Date Comments Amoxicillin Rash Medium 06/07/2023 Omeprazole-Sodium Bicarbonate Hives Medium 2013 Medications APRI 0.15-0.03 mg per tablet 0 Active triamcinolone (KENALOG) 0.1 % cream Apply topically 2 (two) times a day as needed for rash 454 g 11 5 Active fluocinonide (LIDEX) 0.05 % external solution Apply topically 2 (two) times a day as needed for rash 180 mL 11 5 Active Active Problems No known active problems Surgical History Surgery Date Site/Laterality Comments GALLBLADDER SURGERY Family History Medical History Relation Name Comments Arthritis Mother Relation Name Status Comments Mother Social History Tobacco Use Types Packs/Day Years Used Date Smoking Tobacco: Former Vaping Smokeless Tobacco: Never Tobacco Cessation:Counseling Given: Not Answered AUDIT-C Answer Date Recorded Frequency of Alcohol Consumption Not on file 10/08/2023 Q2: How many drinks containi ng alcohol do you have on a typical day when you are drinking? Patient does not drink Frequency of Binge Drinking Not on file 09/22 Personal Safety Answer Date Recorded Getting School Help Needed Not on file 05/07 Comments Unknown Sex and Gender Information Value Date Recorded Sex Assigned at Not on file Legal Sex Female 1:46 PM CDT Gender Identity Not on file Sexual Orientation Not on file Obstetrics History Last Filed Vital Signs Vital Sign Reading Time Taken Comments Blood Pressure 130/83 10/08/2023 2:05 PM CDT Pulse 88 10/08/2023 2:05 PM CDT Temperature 37.3 C (99.1 F) 10/08/2023 2:05 PM CDT Respiratory Rate 16 06/07/2023 2:07 PM CDT Oxygen Saturation 96% 06/07/2023 2:07 PM CDT Inhaled Oxygen Concentration - - Weight 95.1 kg (209 lb 9.6 oz) 10/08/2023 2:05 P M CDT Height 160 cm (5' 3) 10/08/2023 2:05 PM CDT Body Mass Index 37.13 10/08/2023 2:05 PM CDT Plan of Treatment Health Maintenance Due Date Last Done Comments Cervical Cancer Screening 1995 Depression Screening 1995 Hepatitis C Screening 1995 Varicella Vaccines (2 of 2 - 2-dose childhood series) 1999 04/06/1997 DTaP/Tdap/Td Vaccine (6 - Tdap) 09/28/2006 09/20/2000, 01/02/1997, 05/09/1996, Additional history exists Regular Well Visit/Exam 18-64 09/28/2013 Influenza Vaccine (Season Ended) 2024 Hepatitis B Screening Completed 05/09/1996 , 1995, 1995 HPV Vaccines Aged Out No longer eligi ble based on patient's age to complete this topic Pneumococcal vaccine <65 Aged Out No longer eligible based on patient's age to complete this topic Insurance [facility] ACCESS CHOICE [facility] CHO[facility] [place] Care Teams Shim Plug Cutter Relationship Specialty Start Date End Date Unknown, Notinfile PCP - General 06/07/23 Adan Cantrell MD Formerly [facility], [facility] [place] [address] 06/07/23
--- OUTSIDE RECORDS SUMMARY | 2024-09-13 05:12 | XMS_ITS | Referral Summary ---
Author Organization [facility] [address] Address [address] [place] [id number] Care Team Providers Care Grocery Store Manager Name Role Phone Unknown, Notinfile Primary Care Provider Unavail able Adan Cantrell MD Unavailable [phone] Allergies Active Allergy Reactions Criticality Noted [...] Active Active Problems No known active problems Social History Tobacco Use Types Packs/Day Years [...] 10/08/2023 2:05 PM CDT Plan of Treatment Not on file Insurance [employer] CHOICE [employer] ACCESS CHOICE [place] CHOICE [place] PPO [place] Care Teams Grocery Store Manager Relationship Specialty Start Date End Date Unknown, Notinfile PCP - General 06/07/23 Adan Cantrell MD [address] [place] [address] 06/07/23
--- OUTSIDE RECORDS SUMMARY | 2024-09-13 05:12 | XMS_ITS | Data Portability ---
Author Organization [facility], [id number] [place] Address [address] [place] [address] Assessment No assessment recorded. Plan of Treatment Reminders Order Date Submit Date Provider Last Modified By Organization Details Last Modified Time Details Appointments None record ed. Lab None record ed. Referral None record ed. Procedures None record ed. Surgeries None record ed. Imaging None record ed. Medication Orders None record ed. Patient TargetsNo targets recorded. Patient InstructionsNo instructions recorded. Reason for Referral None Reported. Results Created Date Observation Date Name Description Value Unit Range Abnormal Flag Note LastModifiedBy Organization Detail LastModifiedTime 05/25/1904/27/2024 US, obste tric, mater nal evalu ation + anato my No observ ation record ed. [email or web address] [facility] [address] [place], [address], 05/25/2024 09:44:24 06/17/19 25 04/27/2024 US, obste tric, follo w-up No observ ation record ed. [email or web address] [facility] [address] [place], [address], 06/20/2024 08:46:11 06/20/19 25 06/02/2024 US, obste tric, limit ed No observ ation record ed. [email or web address] [facility] [address] [place], [address], 06/19/2024 16:57:52 06/20/19 25 06/02/2024 US, obste tric, limit ed No observ ation record ed. [employer] [address] [place], [address], 06/19/2024 16:24:50 Result Notes None recorded. Problems Name Problem SNOMED Code Status Onset Date Resolution Date Notes Provider Name and Address Organization Details Recorded Time 23502411 Completed 202408/31/2024 Verónica Mejia [facility], [facility] 16:57:33 Psoriasis 6590053 Active 2024 YAZAN PATE [address], [place], [place], [address], [facility] 09:13:48 Gestation period, 27 weeks 14473515 Active 2024 DEMOND PATE [address], [place], [place], [address], [facility] 10:11:34 Problem Notes None recorded. Procedures Surgical History Date Name Laterality Status Provider Name and Address Organization Details Recorded Time Date of Last Pap Smear completed Gerri Hager [facility] 04/27/2024 10:57:45 024 cholecystectomy completed Gerri Hager [facility] 04/27/2024 11:00:12 024 colposcopy completed Gerri Hager [facility] 04/27/2024 10:59:20 024 endometrial biopsy completed Gerri Hager [facility] 04/27/2024 10:59:53 extraction of wisdom tooth completed Gerri Hager [facility] 04/27/2024 11:00:23 Other completed Gerri yecenia [facility] 04/27/2024 12:23:37 Laparoscopic cholecystectomy completed Not Available [facility] 06/22/2024 16:03:10 endometrial biopsy completed Not Available [facility] 06/22/2024 16:03:10 colposcopy completed Not Available [facility] 06/22/2024 16:03:10 Imaging Results None recorded. Procedure Notes None recorded. Medical Equipment None Reported. Allergies Allergen ID Allergen Name Allergen Category Reaction Reaction Severity Criticality Documentation Date Start Date Code Code System Note Provider Name and Address Organization Details Recorded Time 24010926 Product containin g penicilli n (product) medicatio n Not available Not available Not available 04/27/2024 50020 8001 SNOMED Gerri zavala [facility] 10:55:30 360146 amoxicill in medicatio n Not available Not available Not available 04/27/2024 723 RxNorm Gerri zavala [facility] 10:56:02 Medications Name Sig Start Date Stop Date Status Note LastModified by Organization Details LastModified Time azithromyci n 250 mg tablet TAKE 2 TABLETS BY MOUTH TODAY, THEN TAKE 1 TABLET DAILY FOR 4 DAYS DIRECTED 04/27 completed Not Available Not Available Not Available triamcinolo ne acetonide 0.1 % topical cream APPLY TOPICALLY 2 TIMES A DAY NEEDED FOR RASH. 04/27 completed Not Available Not Available Not Available benzonatate 100 mg capsule TAKE 1 CAPSULE BY MOUTH THREE TIMES A DAY NEEDED FOR COUGH 04/27 completed Not Available Not Available Not Available ergocalcife rol (vitamin D2) 1,250 mcg (50,000 unit) capsule TAKE 1 CAPSULE BY MOUTH ONE TIME PER WEEK 04/27 completed Not Available Not Available Not Available fluocinonid e 0.05 % topical solution APPLY TOPICALLY 2 TIMES A DAY NEEDED FOR RASH. 04/27 completed Not Available Not Available Not Available active Not Available Not Avai lable Not Available Adult Low Dose Aspirin active Not Available Not Available Not Available Vitals Date Recorded Body weight Body mass index (BMI) Body height Systolic And Diastolic Provider Name and Address Organization Details Last Updated DateTime 04/27/2024 67233.485 654 g 37.9 kg/m2 160.02 cm 118/72 mm[Hg] Gerri Hager [facility] 04/27/2024 12:23:14 Date Recorded Body weight Systolic And Diastolic Provider Name and Address Organization Details Last Updated DateTime 05/24/2024 40298.92509 g 114/62 mm[Hg] Marlene Álvarez [facility] 05/24/2024 08:57:27 Date Recorded Body weight Systolic And Diastolic Provider Name and Address Organization Details Last Updated DateTime 06/19/2024 928942.29698 g 120/60 mm[Hg] Ephraim Hutchins [facility] 06/19/2024 09:48:11 Social History Question Answer Notes LastModified by Organizat ion Details LastModified Time Tobacco Smoking Status Former Smoker Gerri Alley [facility] 04/27/2024 12:23:37 Do You Have An Advance Directive? No Information not available 04/27/2024 If You Are , What Was Your Level Of Alcohol Consumption Prior To ? None Information not available 04/27/2024 What Is Your Level Of Caffeine Consumption? Occasional Information not available 04/27/2024 What Type Of Diet Are You Following? REGULAR Information not available 04/27/2024 What Is Your Relationship Status? Other Note: Information not available 06/22/2024 At What Age Did You Start Smoking Tobacco? 18 Information not available 04/27/2024 How Much Tobacco Do You Smoke? No Information not available 04/27/2024 Sex: Unknown Functional Status Question Answer Note LastModified by Organizat ion Details LastModified Time Do you use any illicit or recreational drugs? No Information not available 06/22/2024 What is your level of alcohol consumption? None Information not available 04/27/2024 Are you currently employed? 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 Family History Relationship Description Onset Age of this Age Resolved Age Notes LastModified by Organization Details LastModified Time Paternal Grandmother Heart disease bvoellinger Not available 07/2024 12:23:37 Mother Anxiety disorder bvoellinger Not available 07/2024 12:23:37 Maternal Grandfather Depressive disorder bvoellinger Not available 07/2024 12:23:37 Maternal Grandfather Heart disease bvoellinger Not available 07/2024 12:23:37 Maternal Grandfather Myocardial infarction Myocar dial Infarc tion Not available 06/22/2024 17:57:38 Maternal Grandfather Hypertensive disorder High Blood Pressu re Not available 06/22/2024 17:57:38 Unspecified Relation Hypertensive disorder High Blood Pressu re Relati ve: 'Uncle '; Not available 06/22/2024 17:57:38 Unspecified Relation Endometriosi s of uterus Endome triosi s Of Uterus Relati ve: 'Aunt' ; Not available 06/22/2024 17:57:38 Brother Diabetes mellitus Diabet es Not available 06/22/2024 17:57:38 Maternal Grandmother Endometriosi s of uterus Endome triosi s Of Uterus Not available 06/22/2024 17:57:38 Mother Endometriosi s of uterus Endome triosi s Of Uterus Not available 06/22/2024 17:57:38 Medical History Condition Response No diseases or conditions Y Cancer- Genetic screening Gynecological History Statement/Question Response Flow Moderate History of Fibroids N Date of LMP 11/19/2023 Current Control Method: None History of Recurrent Ovarian Cysts N Age at first intercourse 22 HPV Vaccine Completed Post Menopausal Hormone Therapy User Nev er Date of Last HPV Test 02/09/2024 Date of Last Cholesterol Screening 02/22 7 History of PCOS N History of Infertility N History of Cervical Dysplasia N History of Vulvar Dysplasia N Duration of Flow (days) 7 Current Control Method None Age at Menarche 12 History of Endometriosis N Frequency of Cycle (Q days) 0 Sexually Active? Y History of Dysmenorrhea N Menses Monthly Y Date of Last Pap Smear 02/09/2024 Sexual Problems? N History of Sexually Transmitted Infectio n N Obstetrics History GPAL:G 1 P 0 0 0 0 Type Value Full Term 0 Living 0 Total 1 Immunizations Vaccine Type Date Status Note Provider Nam e and Address Organization Details Recorded Time HPV, unspecified formulation 7 completed Gerri hunt, [facility] 04/27/2024 10:56:51 SARS-COV-2 (COVID-19) vaccine, UNSPECIFIED 1 completed Gerri hunt [facility] 04/27/2024 10:57:12 HPV, quadrivalent 7 completed Not Available [facility] 06/22/2024 11:58:08 Past Encounters Encounter ID Performer Location Encounter Start Date Encounter Closed Date Diagnosis/Indication Diagnosis SNOMED-CT Code Diagnosis ICD10 Code Diagnosis Note [id number] MAURY LYONS RD, MD [id number] MUKESH [place] [address] 04/27/2024 12:16:09 04/27/2024 12:38:16 Routine care 915449994 Z34.[id number], MD [id number] MUKESH Solomon [place] [address] 05/24/2024 08:49:12 05/24/2024 09:15:40 Psoriasis 7674121 L40.9 Routine an tenatal care 784180806 Z34.02 [id number] TRAN DIEZ MD [id number] [address] [facility] [place], [place] [address] [place] [address] 06/19/2024 09:28:42 06/19/2024 10:27:11 Gestation period, 27 weeks 47757672 Z3A.27 Second tri mester 10719048 Z34.02 Health Concerns Section Related Observation LastModified by Organization Detai ls LastModified Time None Recorded Concern Status LastModified by Organization Details LastModified Time None Recorded Advance Directives Directive N: Payers Insurance Date Sequence Insurance Name Policy Number Policy Amato Covered Member ID Amato Member ID Guarantor Name 07/19/2024 1 [facility] [id number] [facility] [id number] [facility] 07/19/2024 2 [facility] [id number] [place]au [place] [id number] Briellepavan [place] Notes Date Note Type Note Provider Name and Address Organization Details Recorded Time 04/27/2024 text/html Abnormal ([facility])Reported bypatient.*Assoc iated Signs & Symptoms:Denies headaches, dizziness, visual changes, regular contractions, vaginal bleeding, or leaking of fluid. movement is normal. MAURY COBURN MD [address], [place], [address], [facility] 04/27/2024 12:48:47 OBGyn Episode Ob Episode Information Episode Created Date Number of Fetuses Patient Bloodtype Patient rh Status Prepregnancy Weight lbs Domestic Partner Domestic Partner Phone Father Name Potato Chip Maker Status 04/05/19 25 1 O Positive 214 CLOSED Fetus Data First Name Last Name Admitted to NICU Weight (g) Sex Living Outcome Pediatric Complications Fetus ID Race Codes Race Delivery Type [id number] Dheeraj Calculation Initial Dheeraj Date Initial Exam Date Initial Exam Provider Initial Ultrasound Date Last Menstrual Period Date Ultra Sound Weeks Gestation 09/18/2024 02/09/2024 bgelly 02/09/2024 12/06/2023 8 Eighteen To Twenty Week Dheeraj Update Ultra Sound Date Fundal Height At Umbil Quickening Date Ultra Sound Latest Weeks Gestation Final Dheeraj Confirmed By Final Dheeraj Confirmed Date Final Dheeraj Date Ultra Sound Latest Days Gestation 0 0 Pre-dolores Flowsheet Flowsheet Date 04/27/2024 Rubi Score Blood Edema Fundus Height Fundus Units Glucose Ketones Leukocytes Nitrite Labor Signs Protein Cervic Dilation Cervic Effacement Cervic Station none trace Type Weight in lbs Pre/Post Dialysis Refused 214.575164857473 BP Diastolic BP Location Tested BP Systolic BP Type 72 L arm 118 sitting Fetus Heart Rate Present A 145 Present Fetus Movement A Yes Comments 20 week U/S done at [facility] today. No concerns. Doing well feeling baby Flowsheet Date 05/24/2024 Rubi Score Blood Edema Fundus Height Fundus Units Glucose Ketones Leukocytes Nitrite Labor Signs Protein Cervic Dilation Cervic Effacement Cervic Station trace 23 cm none none neg Type Weight in lbs Pre/Post Dialysis Refused 217.666470982256 BP Diastolic BP Location Tested BP Systolic BP Type 62 114 Fetus Heart Rate Present A 158 Present Fetus Movement A Yes Comments has an itchy patch between b reastdoing well, c/o itchy rash on breasts x 2 days. hx of psoriasis-appears to be flair or eczematous rash. 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 has not been using it under breasts. -beckie Flowsheet Date 06/19/2024 Rubi Score Blood Edema Fundus Height Fundus Units Glucose Ketones Leukocytes Nitrite Labor Signs Protein Cervic Dilation Cervic Effacement Cervic Station none 29 cm none none neg Type Weight in lbs Pre/Post Dialysis Refused 222.45155174550 BP Diastolic BP Location Tested BP Systolic BP Type 60 120 Fetus Heart Rate Present A Present Fetus Movement A Yes Comments Doing well. No concerns toda y.-bdk hx/rx rv'd doing okay no concerns pt is moving care mw Menstrual History Last Menstrual Date Menses Monthly On Bcp Conception Prior Menses Frequency Hcg Plus Date Menarche Onset Age 1012/06/2023 Genetic Screening And Infection History Question Response Note Mental Retardation/Autism true FOB ne phew Patient's Age Will Be 35 Yea rs Or Older At Estimated Date of Delivery false Thalassemia (Kyrgyz, Stateless, Mediterranean, Or Background): MCV < 80 false Neural Tube Defect (Meningom yelocele, Spina Bifida, Or Anencephaly) false Congenital Heart Defect false Down Syndrome false Doc-Sachs (eg, Spiritism, Cajun, Romansh-Central African) f alse Awilda Disease false Sickle Cell Disease Or Trait () false Hemophilia Or Other Blood Disorders false Muscular Dystrophy false Cystic Fibrosis false Somerset's Chorea false Intellectual Disability/Autism false If Yes, Was Person Tested For Fragile X? false Other Inherited Genetic Or Chromosomal Disorder false Maternal Metabolic Disorder (eg, Type 1 Diabetes , PKU) false Patient Or Baby's Father Had A Child With Defects Not Listed Above false Recurrent Loss, Or A Stillbirth false Medications (including Suppl ements, Vitamins, Herbs, OTC Drugs), Illicit/Recreational Drugs, Alcohol false If Yes, Agent(s) And Strength/Dosage false Any Other Genetic History false Live With Someone With TB Or Exposed To TB false Patient Or Partner Has History Of Genital Herpes false Rash Or Viral Illness Since Last Menstrual Perio d false History Of STD, Gonorrhea, Chlamydia, HPV, Syphi lis false Other Infection History false History of HIV false History of Hepatitis false Prior GBS-infected child false Hemoglobinopathy Or Carrier false Recent Travel History Outside of Country false Other Structural Defect false Delivery Information Delivery Date Delivery Type Labor Anesthesia Weeks Gestation Incision Type Labor Labor Length Hrs Delivered By Post Complications Tubal Sterilization Discharge Date Comments Discharge Information Feeding Method Contraceptive Method Maternal HG B and HCT Levels
[2024-09-13 06:07] LABS: Hematocrit 35.1 % (37.0-47.0); Hemoglobin 11.4 g/dL (12.0-15.0); Immature Granulocyte Percent A 0.9 % (0-0.5); Lymphocytes Absolute Auto 1.23 K/mm3 (0.9-3.2); Mean Corpuscular HGB Conc 32.5 g/dl (32-36); Mean Corpuscular Hemoglobin 29.2 pg (26-34); Mean Corpuscular Volume 90.0 fl (80-100); Nucleated Red Blood Cells Absolute Auto 0.000 K/mm3 (0.0-0.012); Nucleated Red Blood Cells Perc 0.0 % (0.0-0.2); Platelet Count Result 185 k/mm3 (150-375); Red Blood Count 3.90 M/mm3 (4.2-5.4); White Blood Count 11.0 K/mm3 (4.5-10.0)
--- NOTE | 2024-09-13 06:37 | P.PNAN_ITS ---
Anes - Eval Pre Procedure Procedure: labor pain managment Date/Time: 09/13/24 06:37 Surgeon: Humera Preop Diagnosis: pain during labor Pre Op Diagnosis: IOL Patient Data Age: 28 Gender: F Height: 1.6 m Weight: 111.36 kg Last Vital Signs O2 Del Method Room Air 09/13/24 06:00 Allergies Allergy/AdvReac Type Severity Reaction Status Date / Time amoxicillin Allergy Severe Rash Verified 09/13/24 06:01 azithromycin (From Zithromax Allergy Hives Verified 09/13/24 06:01 Z-Jorden) omeprazole (From Zegerid) Allergy rash Verified 09/13/24 06:01 penicillin V (From Pen-Vee K) Allergy Red face Verified 09/13/24 06:01 sodium bicarbonate (From Allergy rash Verified 09/13/24 06:01 Zegerid) Home Medications ?Medication ?Instructions ?Recorded ?Confirmed ?Type aspirin 81 mg tablet 81 mg PO DAILY 08/21/24 09/13/24 History vit no.95-ferrous 1 tablet PO DAILY 08/21/24 09/13/24 History fumarate 28 mg-folic acid 800 mcg tablet () Laboratory Tests 09/13/24 05:41 WBC 11.0 H K/mm3 (4.5-10.0) RBC 3.90 L M/mm3 (4.2-5.4) Hgb 11.4 L g/dL (12.0-15.0) Hct 35.1 L % (37.0-47.0) MCV 90.0 fl (80-100) MCH 29.2 pg (26-34) MCHC 32.5 g/dl (32-36) RDW 14.5 % (11.5-14.5) Plt Count 185 k/mm3 (150-375) MPV 11.5 H fl (7.4-10.4) Immature Gran % (Auto) 0.9 H % (0-0.5) Neut % (Auto) 81.6 H % (45.5-73.1) Lymph % (Auto) 11.2 L % (18.3-44.2) [place] % (Auto) 5.5 % (2.6-8.5) Eos % (Auto) 0.5 % (0-4.4) Baso % (Auto) 0.3 % (0.2-1.2) Lymph # (Auto) 1.23 K/mm3 (0.9-3.2) [place] # (Auto) 0.6 K/mm3 (0.1-0.6) Eos # (Auto) 0.1 K/mm3 (0-0.3) Baso # (Auto) 0.0 K/mm3 (0.0-0.1) Abs Immat Gran (auto) 0.10 H K/mm3 (0.00-0.031) Absolute Neuts (auto) 9.0 H K/mm3 (1.3-6.7) Absolute Nucleated RBC 0.000 K/mm3 (0.0-0.012) Nucleated RBC % 0.0 % (0.0-0.2) Blood Type Pending Antibody Screen Pending Patient hx anesthesia problems: none Family hx anesthesia problems: none Results Review: All pre-operative results and documents have been reviewed as part of the pre- operative evaluation. [facility] Past Medical History Medical History Anxiety Vitamin D deficiency disease GERD (gastroesophageal reflux disease) Seasonal allergies Family History Family History Mother Anxiety Depression Cancer of kidney Sibling Diabetes mellitus Grandparent CHF (congestive heart failure) Heart disease Grandparent Heart disease Social History Social History Smoking status: Former smoker Tobacco type: e-cigarettes/vaping Second hand tobacco smoke exposure: No Alcohol intake: never Substance use: former Substance use type: marijuana Do You Feel Safe in your Home?: Yes Lack of Transportation: No Lack of Food: Never True Current Housing: I Have Housing Concerned About Future Housing: No Difficulty Paying Gas/Electric Bills: No Difficulty Paying for Meds: No Currently Unemployed: No Education: Bachelor's Degree Difficulty w/ Childcare or Family Care: No Living arrangements: with family Occupation/Education: occupation Gender identity (if verbalized by the patient): Female Spiritual care concerns: No Exam Day of Procedure 09/13/24 06:37
[2024-09-13] MEDS: OXYTOCIN 30 UNITS/NS 500 ML 30 UNITS/500 ML BAG 6 UNITS IV CONT (11:14)
[2024-09-13] MEDS: LACTATED RINGERS 1,000 ML 125 ML IV CONT ×2 (11:15→21:26)
--- NOTE | 2024-09-13 12:15 | WPDOBADMIT ---
Obstetrics - Admit Note Admission Note: record reviewed. No pertinent additions to the history and/or any subsequent changes in the physical findings that are not consistent with the expected course of the were found. Additions to the history and/or subsequent changes in the physical findings follow. EIOL, SVE /-2 AROM small clear fluid, IUPC placed, anticipate vaginal dellivery
[2024-09-13] MEDS: CALCIUM CARBONATE (TUMS) 500 MG (200 MG ELEMENTAL) PO (21:26)
[2024-09-13] MEDS: FAMOTIDINE 20 MG/2 ML VIAL IV PUSH (21:26)
[2024-09-13] MEDS: ONDANSETRON INJ 4 MG/2 ML VIAL IV PUSH (21:31)
[2024-09-13] MEDS: ACETAMINOPHEN 500 MG TABLET 1000 MG PO (23:53)
[2024-09-14] VITALS (156 sets, daily range): BP systolic 88–129; BP diastolic 42–88; PULSE 78–118; RESP 15–24; TEMP 36.8–37.5; O2SAT 92–100
[2024-09-14] MEDS: ceFAZolin 2 GM in SODIUM CHLORIDE 0.9% IV 50 ML 100 ML IVPB (00:08)
--- NOTE | 2024-09-14 01:09 | PM.OBPNLAB ---
Pain Control Date/time seen: 09/14/24 01:09 Comments: SCE 1.5/75/-2, pt unchanged since this am, FHR category 1 contractions adequate. Had a discussion with pt risks and benefits about continuing augmenting labor vs planning for a section. will turn off pitocin for now and allow for rest and repositioning. will discuss with dr. infante and plan for section in the morning
[2024-09-14 01:33] LABS: Syphilis IgG/IgM Antibody Non-Reactive (Nonreactive)
[2024-09-14] MEDS: LACTATED RINGERS 1,000 ML 125 ML IV CONT (05:23)
--- NOTE | 2024-09-14 06:32 | P.PNAN_ITS ---
Anes - Eval Final PreProcedure Day of Procedure 09/14/24 06:32 Patient weight: morbidly obese Heart: regular rate and rhythm Lungs: clear to auscultation and normal air movement Airway: Mallampati scale class II Neurological: alert and oriented Last oral intake: >/= 8 hours ASA classification: III Emergent: no Anesthetic plan: proceed Anesthesia type and monitoring: regional epidural and standard monitoring Results Review: All pre-operative results and documents have been reviewed as part of the pre- operative evaluation. Informed Consent: The patient's anesthetic plan and its attendant risks and benefits were discussed with the patient/family/POA. Questions were solicited and answers provided to the satisfaction of the patient/family/POA.
--- NOTE | 2024-09-14 06:44 | P.HP_ITS ---
H&P: HPI History of Present Illness Date/Time: 09/14/24 06:44 Chief Complaint: Term Narrative: This patient is a 28-year-old gravid female at term. Presented for elective induction of labor. Was a failed induction with failure to progress in labor. We agreed to perform delivery. She understands risks, benefits, and alternatives. She has completed the informed consent process and is ready to proceed. The patient understands the details of the procedure. The procedure has been explained in detail. She understands the risks. She understands that injuries may occur that result in hospitalization, more surgery, and severe illness. She understands risk of hemorrhage and infection. She denies any chest pain or shortness of breath. She denies any nausea, vomiting, fever, chills. Review of Systems Review of Systems: All systems reviewed & are unremarkable except as noted in HPI and below Constitutional: Constitutional: Denies chills, Denies fatigue, Denies fever(s) and Denies weakness Eyes: Eyes: Denies blurry vision, Denies change in vision, Denies loss of peripheral vision, Denies loss of vision, Denies other visual disturbances and Denies eye pain ENT: Denies vertigo, Denies dizziness, Denies hearing loss, Denies mouth pain, Denies nasal obstruction, Denies neck mass and Denies neck pain Cardiovascular: Cardiovascular: Denies chest pain, Denies diaphoresis, Denies syncope, Denies leg edema and Denies dyspnea Respiratory: Respiratory: Denies chest congestion, Denies cough, Denies hemoptysis, Denies dyspnea and Denies wheezing Gastrointestinal: Gastrointestinal: Denies abdominal pain, Denies constipation, Denies diarrhea, Denies nausea and Denies vomiting Genitourinary: Genitourinary: Denies hematuria, Denies change in libido, Denies nocturia, Denies genital lesions, Denies flank pain and Denies urinary urgency Musculoskeletal: Musculoskeletal: Denies abnormal gait, Denies back pain, Denies myalgias, Denies arthralgias, Denies joint swelling, Denies muscle weakness and Denies neck pain Integumentary/Breasts: Skin/Breast: Denies swelling, Denies breast pain, Denies breast mass, Denies dry skin, Denies nipple discharge, Denies unusual bruising and Denies jaundice Neurologic: Denies Neuro-related abnormal movements, Denies Abnormal speech present, Denies abnormal gait, Denies behavioral changes, Denies confusion, Denies vertigo, Denies dizziness, Denies syncope, Denies loss of vision, Denies memory loss, Denies convulsions and Denies weakness Psychiatric: Psychiatric: Denies abnormal sleep pattern, Denies behavioral changes, Denies change in libido, Denies confusion, Denies depression, Denies anhedonia and Denies memory loss Endocrine: Endocrine: Reports no additional endocrine complaints, Denies change in libido and Denies fatigue Hematologic/Lymphatic: Hematologic/Lymphatic: Reports no additional hematolog ic/lymphatic complaints Allergic/Immunologic: Allergic/Immunologic: Reports no additional allergic/immunologic complaints and Denies wheezing PMFSH Past Medical History Medical History Anxiety Vitamin D deficiency disease GERD (gastroesophageal reflux disease) Seasonal allergies Family History Family History Mother Anxiety Depression Cancer of kidney Sibling Diabetes mellitus Grandparent CHF (congestive heart failure) Heart disease Grandparent Heart disease Social History Social History Smoking status: Former smoker Tobacco type: e-cigarettes/vaping Second hand tobacco smoke exposure: No Alcohol intake: never Substance use: former Substance use type: marijuana Do You Feel Safe in your Home?: Yes Lack of Transportation: No Lack of Food: Never True Current Housing: I Have Housing Concerned About Future Housing: No Difficulty Paying Gas/Electric Bills: No Difficulty Paying for Meds: No Currently Unemployed: No Education: Bachelor's Degree Difficulty w/ Childcare or Family Care: No Living arrangements: with family Occupation/Education: occupation Gender identity (if verbalized by the patient): Female Spiritual care concerns: No Meds Home Medications and Allergies Home Medications ?Medication ?Instructions ?Recorded ?Confirmed ?Type aspirin 81 mg tablet 81 mg PO DAILY 08/21/24 09/13/24 History vit no.95-ferrous 1 tablet PO DAILY 08/21/24 09/13/24 History fumarate 28 mg-folic acid 800 mcg tablet () Allergies Allergy/AdvReac Type Severity Reaction Status Date / Time amoxicillin Allergy Severe Rash Verified 09/13/24 06:01 azithromycin (From Zithromax Allergy Hives Verified 09/13/24 06:01 Z-Jorden) omeprazole (From Zegerid) Allergy rash Verified 09/13/24 06:01 penicillin V (From Pen-Vee K) Allergy Red face Verified 09/13/24 06:01 sodium bicarbonate (From Allergy rash Verified 09/13/24 06:01 Zegerid) Vital Signs Vital Signs - 24 hr 09/13/24 07:03 09/13/24 07:15 09/13/24 07:31 Temperature Pulse Rate 86 86 90 Respiratory Rate Blood Pressure 120/69 118/74 122/74 Pulse Oximetry 09/13/24 07:46 09/13/24 08:01 09/13/24 08:16 Temperature Pulse Rate 86 81 86 Respiratory Rate Blood Pressure 117/74 128/65 129/73 Pulse Oximetry 09/13/24 08:31 09/13/24 08:46 09/13/24 09:00 Temperature Pulse Rate 86 84 88 Respiratory Rate Blood Pressure 116/71 115/70 129/80 Pulse Oximetry 09/13/24 09:16 09/13/24 09:31 09/13/24 09:46 Temperature Pulse Rate 85 81 85 Respiratory Rate Blood Pressure 123/74 129/68 124/71 Pulse Oximetry 09/13/24 10:00 09/13/24 10:16 09/13/24 10:31 Temperature Pulse Rate 91 86 80 Respiratory Rate Blood Pressure 126/77 131/77 126/65 Pulse Oximetry 09/13/24 10:45 09/13/24 10:46 09/13/24 11:01 Temperature 97.5 F L Pulse Rate 95 96 Respiratory Rate Blood Pressure 124/81 118/81 Pulse Oximetry 09/13/24 11:16 09/13/24 11:30 09/13/24 11:46 Temperature Pulse Rate 90 93 94 Respiratory Rate Blood Pressure 115/71 128/79 130/71 Pulse Oximetry 09/13/24 12:01 09/13/24 12:16 09/13/24 12:31 Temperature Pulse Rate 85 87 81 Respiratory Rate Blood Pressure 126/68 127/59 L 114/55 L Pulse Oximetry 09/13/24 12:46 09/13/24 13:01 09/13/24 13:16 Temperature Pulse Rate 126 H 80 82 Respiratory Rate Blood Pressure 90/70 L 106/52 L 115/59 L Pulse Oximetry 09/13/24 13:31 09/13/24 13:46 09/13/24 14:01 Temperature Pulse Rate 83 71 72 Respiratory Rate Blood Pressure 115/57 L 130/79 125/73 Pulse Oximetry 09/13/24 14:16 09/13/24 14:31 09/13/24 14:46 Temperature Pulse Rate 81 100 129 H Respiratory Rate Blood Pressure 140/81 129/71 124/52 L Pulse Oximetry 09/13/24 14:52 09/13/24 15:01 09/13/24 15:16 Temperature 97.5 F L Pulse Rate 83 91 Respiratory Rate Blood Pressure 108/49 L 114/41 L Pulse Oximetry 09/13/24 15:31 09/13/24 15:46 09/13/24 16:00 Temperature Pulse Rate 75 75 99 Respiratory Rate Blood Pressure 110/57 L 117/54 L 137/74 Pulse Oximetry 100 09/13/24 16:01 09/13/24 16:03 09/13/24 16:05 Temperature Pulse Rate 99 98 Respiratory Rate Blood Pressure 150/66 H 129/68 Pulse Oximetry 100 09/13/24 16:07 09/13/24 16:08 09/13/24 16:10 Temperature Pulse Rate 90 92 Respiratory Rate Blood Pressure 131/69 131/68 Pulse Oximetry 100 09/13/24 16:11 09/13/24 16:13 09/13/24 16:15 Temperature Pulse Rate 101 H 92 Respiratory Rate Blood Pressure 111/61 117/66 Pulse Oximetry 100 09/13/24 16:16 09/13/24 16:19 09/13/24 16:20 Temperature Pulse Rate 92 87 Respiratory Rate Blood Pressure 118/69 119/60 Pulse Oximetry 100 09/13/24 16:22 09/13/24 16:25 09/13/24 16:27 Temperature Pulse Rate 78 84 83 Respiratory Rate Blood Pressure 115/56 L 107/62 119/68 Pulse Oximetry 100 09/13/24 16:30 09/13/24 16:31 09/13/24 16:34 Temperature Pulse Rate 90 96 Respiratory Rate Blood Pressure 125/69 131/65 Pulse Oximetry 100 09/13/24 16:35 09/13/24 16:40 09/13/24 16:45 Temperature Pulse Rate Respiratory Rate Blood Pressure Pulse Oximetry 100 100 100 09/13/24 16:46 09/13/24 16:50 09/13/24 16:55 Temperature Pulse Rate 85 Respiratory Rate Blood Pressure 121/44 L Pulse Oximetry 100 100 09/13/24 17:00 09/13/24 17:01 09/13/24 17:05 Temperature Pulse Rate 77 Respiratory Rate Blood Pressure 109/47 L Pulse Oximetry 100 100 09/13/24 17:10 09/13/24 17:15 09/13/24 17:16 Temperature Pulse Rate 81 Respiratory Rate Blood Pressure 109/52 L Pulse Oximetry 100 100 09/13/24 17:20 09/13/24 17:25 09/13/24 17:30 Temperature Pulse Rate Respiratory Rate Blood Pressure Pulse Oximetry 99 99 99 09/13/24 17:31 09/13/24 17:35 09/13/24 17:40 Temperature Pulse Rate 76 Respiratory Rate Blood Pressure 105/58 L Pulse Oximetry 100 100 09/13/24 17:45 09/13/24 17:46 09/13/24 17:50 Temperature Pulse Rate 88 Respiratory Rate Blood Pressure 123/71 Pulse Oximetry 100 100 09/13/24 17:54 09/13/24 17:56 09/13/24 18:01 Temperature Pulse Rate 99 Respiratory Rate Blood Pressure 138/68 Pulse Oximetry 99 100 100 09/13/24 18:06 09/13/24 18:11 09/13/24 18:16 Temperature Pulse Rate 84 Respiratory Rate Blood Pressure 111/61 Pulse Oximetry 100 100 100 09/13/24 18:21 09/13/24 18:26 09/13/24 18:30 Temperature 97.9 F Pulse Rate Respiratory Rate 14 Blood Pressure Pulse Oximetry 100 100 09/13/24 18:31 09/13/24 18:36 09/13/24 18:41 Temperature Pulse Rate 93 Respiratory Rate Blood Pressure 124/67 Pulse Oximetry 100 100 100 09/13/24 18:46 09/13/24 18:51 09/13/24 18:56 Temperature Pulse Rate 101 H Respiratory Rate Blood Pressure 130/80 Pulse Oximetry 100 100 100 09/13/24 19:01 09/13/24 19:04 09/13/24 19:09 Temperature Pulse Rate 125 H Respiratory Rate Blood Pressure 131/101 H Pulse Oximetry 100 100 100 09/13/24 19:14 09/13/24 19:16 09/13/24 19:19 Temperature Pulse Rate 101 H Respiratory Rate Blood Pressure 133/76 Pulse Oximetry 100 99 09/13/24 19:24 09/13/24 19:29 09/13/24 19:31 Temperature Pulse Rate 97 Respiratory Rate Blood Pressure 125/74 Pulse Oximetry 100 99 09/13/24 19:34 09/13/24 19:39 09/13/24 19:44 Temperature Pulse Rate Respiratory Rate Blood Pressure Pulse Oximetry 99 100 100 09/13/24 19:45 09/13/24 19:49 09/13/24 19:54 Temperature Pulse Rate 103 H Respiratory Rate Blood Pressure 126/78 Pulse Oximetry 99 99 09/13/24 19:59 09/13/24 20:00 09/13/24 20:04 Temperature Pulse Rate 111 H Respiratory Rate Blood Pressure 125/83 Pulse Oximetry 99 99 09/13/24 20:09 09/13/24 20:14 09/13/24 20:16 Temperature Pulse Rate 105 H Respiratory Rate Blood Pressure 120/50 L Pulse Oximetry 100 97 09/13/24 20:19 09/13/24 20:24 09/13/24 20:29 Temperature Pulse Rate Respiratory Rate Blood Pressure Pulse Oximetry 98 97 99 09/13/24 20:31 09/13/24 20:34 09/13/24 20:39 Temperature Pulse Rate 153 H Respiratory Rate Blood Pressure 122/51 L Pulse Oximetry 96 99 09/13/24 20:44 09/13/24 20:46 09/13/24 20:49 Temperature Pulse Rate 108 H Respiratory Rate Blood Pressure 121/47 L Pulse Oximetry 99 98 09/13/24 20:54 09/13/24 20:59 09/13/24 21:01 Temperature Pulse Rate 101 H Respiratory Rate Blood Pressure 86/57 L Pulse Oximetry 99 97 09/13/24 21:04 09/13/24 21:09 09/13/24 21:10 Temperature Pulse Rate 108 H Respiratory Rate Blood Pressure 105/43 L Pulse Oximetry 98 97 09/13/24 21:14 09/13/24 21:16 09/13/24 21:19 Temperature Pulse Rate 90 Respiratory Rate Blood Pressure 116/51 L Pulse Oximetry 98 97 09/13/24 21:24 09/13/24 21:29 09/13/24 21:29 Temperature Pulse Rate Respiratory Rate Blood Pressure Pulse Oximetry 96 98 98 09/13/24 21:30 09/13/24 21:32 09/13/24 21:35 Temperature Pulse Rate 114 H 110 H Respiratory Rate Blood Pressure 130/58 L 124/57 L Pulse Oximetry 97 97 09/13/24 21:37 09/13/24 21:42 09/13/24 21:45 Temperature Pulse Rate 95 Respiratory Rate Blood Pressure 127/79 Pulse Oximetry 98 98 09/13/24 21:47 09/13/24 21:52 09/13/24 21:57 Temperature Pulse Rate Respiratory Rate Blood Pressure Pulse Oximetry 97 97 95 09/13/24 22:01 09/13/24 22:02 09/13/24 22:07 Temperature Pulse Rate 85 Respiratory Rate Blood Pressure 119/69 Pulse Oximetry 97 96 09/13/24 22:12 09/13/24 22:16 09/13/24 22:17 Temperature Pulse Rate 86 Respiratory Rate Blood Pressure 128/73 Pulse Oximetry 96 96 09/13/24 22:22 09/13/24 22:27 09/13/24 22:31 Temperature Pulse Rate 98 Respiratory Rate Blood Pressure 118/57 L Pulse Oximetry 96 96 09/13/24 22:32 09/13/24 22:37 09/13/24 22:42 Temperature Pulse Rate Respiratory Rate Blood Pressure Pulse Oximetry 99 99 97 09/13/24 22:46 09/13/24 22:47 09/13/24 22:52 Temperature Pulse Rate 83 Respiratory Rate Blood Pressure 109/53 L Pulse Oximetry 97 98 09/13/24 22:57 09/13/24 23:01 09/13/24 23:02 Temperature Pulse Rate 84 Respiratory Rate Blood Pressure 109/53 L Pulse Oximetry 97 99 09/13/24 23:07 09/13/24 23:12 09/13/24 23:16 Temperature Pulse Rate 82 Respiratory Rate Blood Pressure 106/56 L Pulse Oximetry 98 97 09/13/24 23:17 09/13/24 23:22 09/13/24 23:27 Temperature Pulse Rate Respiratory Rate Blood Pressure Pulse Oximetry 97 96 97 09/13/24 23:30 09/13/24 23:31 09/13/24 23:32 Temperature 99 F Pulse Rate 77 Respiratory Rate 20 Blood Pressure 105/53 L Pulse Oximetry 96 09/13/24 23:37 07/23/25 23:42 09/13/24 23:46 Temperature Pulse Rate 86 Respiratory Rate Blood Pressure 107/62 Pulse Oximetry 95 94 09/13/24 23:47 09/13/24 23:52 09/13/24 23:53 Temperature 99 F Pulse Rate Respiratory Rate Blood Pressure Pulse Oximetry 97 98 09/13/24 23:57 09/14/24 00:00 09/14/24 00:02 Temperature Pulse Rate 102 H Respiratory Rate Blood Pressure 119/65 Pulse Oximetry 98 97 09/14/24 00:07 09/14/24 00:12 09/14/24 00:16 Temperature Pulse Rate 81 Respiratory Rate Blood Pressure 121/51 L Pulse Oximetry 97 97 09/14/24 00:17 09/14/24 00:22 09/14/24 00:27 Temperature Pulse Rate Respiratory Rate Blood Pressure Pulse Oximetry 97 97 97 09/14/24 00:31 09/14/24 00:32 09/14/24 00:37 Temperature Pulse Rate 87 Respiratory Rate Blood Pressure 115/55 L Pulse Oximetry 97 97 09/14/24 00:42 09/14/24 00:46 09/14/24 00:47 Temperature Pulse Rate 118 H Respiratory Rate Blood Pressure 90/67 L Pulse Oximetry 97 99 09/14/24 00:52 09/14/24 00:57 09/14/24 01:00 Temperature Pulse Rate 101 H Respiratory Rate Blood Pressure 114/78 Pulse Oximetry 100 99 09/14/24 01:02 09/14/24 01:07 09/14/24 01:12 Temperature Pulse Rate Respiratory Rate Blood Pressure Pulse Oximetry 99 99 98 09/14/24 01:16 09/14/24 01:17 09/14/24 01:22 Temperature Pulse Rate 90 Respiratory Rate Blood Pressure 129/67 Pulse Oximetry 97 97 09/14/24 01:27 09/14/24 01:31 09/14/24 01:32 Temperature Pulse Rate 91 Respiratory Rate Blood Pressure 122/65 Pulse Oximetry 96 95 09/14/24 01:37 09/14/24 01:42 09/14/24 01:46 Temperature Pulse Rate 93 Respiratory Rate Blood Pressure 114/57 L Pulse Oximetry 95 94 09/14/24 01:47 09/14/24 01:52 09/14/24 01:57 Temperature Pulse Rate Respiratory Rate Blood Pressure Pulse Oximetry 94 93 93 09/14/24 02:01 09/14/24 02:02 09/14/24 02:07 Temperature Pulse Rate 90 Respiratory Rate Blood Pressure 102/57 L Pulse Oximetry 93 94 09/14/24 02:12 09/14/24 02:16 09/14/24 02:17 Temperature Pulse Rate 86 Respiratory Rate Blood Pressure 105/57 L Pulse Oximetry 94 94 09/14/24 02:22 09/14/24 02:27 09/14/24 02:31 Temperature Pulse Rate 88 Respiratory Rate Blood Pressure 106/47 L Pulse Oximetry 94 94 09/14/24 02:36 09/14/24 02:41 09/14/24 02:46 Temperature Pulse Rate 91 Respiratory Rate Blood Pressure 109/57 L Pulse Oximetry 95 93 09/14/24 03:01 09/14/24 03:03 09/14/24 03:08 Temperature Pulse Rate 90 Respiratory Rate Blood Pressure 112/60 Pulse Oximetry 96 95 09/14/24 03:13 09/14/24 03:16 09/14/24 03:18 Temperature Pulse Rate 94 Respiratory Rate Blood Pressure 118/63 Pulse Oximetry 95 95 09/14/24 03:23 09/14/24 03:28 09/14/24 03:31 Temperature Pulse Rate 89 Respiratory Rate Blood Pressure 124/57 L Pulse Oximetry 94 95 09/14/24 03:33 09/14/24 03:38 09/14/24 03:43 Temperature Pulse Rate Respiratory Rate Blood Pressure Pulse Oximetry 95 98 97 09/14/24 03:46 09/14/24 03:48 09/14/24 03:53 Temperature Pulse Rate 86 Respiratory Rate Blood Pressure 106/44 L Pulse Oximetry 97 96 09/14/24 03:58 09/14/24 04:01 09/14/24 04:03 Temperature Pulse Rate 84 Respiratory Rate Blood Pressure 101/45 L Pulse Oximetry 96 96 09/14/24 04:08 09/14/24 04:13 09/14/24 04:16 Temperature Pulse Rate 81 Respiratory Rate Blood Pressure 99/43 L Pulse Oximetry 96 96 09/14/24 04:18 09/14/24 04:23 09/14/24 04:28 Temperature Pulse Rate Respiratory Rate Blood Pressure Pulse Oximetry 95 95 95 09/14/24 04:31 09/14/24 04:33 09/14/24 04:38 Temperature Pulse Rate 78 Respiratory Rate Blood Pressure 88/42 L Pulse Oximetry 96 96 09/14/24 04:43 09/14/24 04:46 09/14/24 04:48 Temperature Pulse Rate 95 Respiratory Rate Blood Pressure 88/50 L Pulse Oximetry 96 95 09/14/24 04:53 09/14/24 04:58 09/14/24 05:01 Temperature Pulse Rate 85 Respiratory Rate Blood Pressure 103/56 L Pulse Oximetry 95 97 09/14/24 05:03 09/14/24 05:08 09/14/24 05:13 Temperature Pulse Rate Respiratory Rate Blood Pressure Pulse Oximetry 98 97 96 09/14/24 05:16 09/14/24 05:18 09/14/24 05:23 Temperature Pulse Rate 87 Respiratory Rate Blood Pressure 108/54 L Pulse Oximetry 97 96 09/14/24 05:28 09/14/24 05:31 09/14/24 05:33 Temperature Pulse Rate 78 Respiratory Rate Blood Pressure 103/45 L Pulse Oximetry 97 97 09/14/24 05:38 09/14/24 05:43 09/14/24 05:46 Temperature Pulse Rate 90 Respiratory Rate Blood Pressure 108/48 L Pulse Oximetry 97 97 09/14/24 05:48 09/14/24 05:53 09/14/24 05:58 Temperature Pulse Rate Respiratory Rate Blood Pressure Pulse Oximetry 97 95 95 09/14/24 06:01 09/14/24 06:03 09/14/24 06:08 Temperature Pulse Rate 85 Respiratory Rate Blood Pressure 114/43 L Pulse Oximetry 98 97 09/14/24 06:13 09/14/24 06:16 09/14/24 06:18 Temperature Pulse Rate 106 H Respiratory Rate Blood Pressure 127/58 L Pulse Oximetry 98 98 09/14/24 06:23 09/14/24 06:28 09/14/24 06:31 Temperature Pulse Rate 96 Respiratory Rate Blood Pressure 119/48 L Pulse Oximetry 98 99 09/14/24 06:33 09/14/24 06:38 09/14/24 06:43 Temperature Pulse Rate Respiratory Rate Blood Pressure Pulse Oximetry 98 98 99 Exam Const: General: cooperative, healthy appearing, comfortable and no acute distress Orientation/consciousness: oriented to person, oriented to place and oriented to time HENMT: Head: normal to inspection Ears: external ears normal Face/N ose/Sinus: Normal external nose present and normal facial exam Face and sinus: normal facial exam Eyes: General: appearance normal, both eyes and all related structures Neck: Neck: normal visual inspection, trachea midline and supple Resp: Auscultation: clear to auscultation bilaterally, no crackles, no rales, no rhonchi and no wheezes Cardio: Rate: regular rate Rhythm: regular rhythm Heart sounds: no click, no murmurs and no rubs GI: GI Palp: No abdominal tenderness, No Soft to palpation, No Tenderness to palpation present (GI) and No Palpable mass present Auscultation: normal bowel sounds Skin: General skin exam: normal color and no rashes or lesions noted Neuro: General: oriented to person, oriented to place and oriented to time Extrem: General: normal to inspection, no joint enlargement, no clubbing, cyanosis or edema, no pedal edema and no calf tenderness Psych: Appearance: grossly normal Mental Status: mental status grossly normal Speech and movement: Normal speech and movement present Assessment and Plan Assessment and plan (1) Failed induction of labor: Code(s): O61.9 - Failed induction of labor, unspecified Status: Acute Plan This patient is a 28-year-old gravid female at term. Presented for elective induction of labor. Was a failed induction with failure to progress in labor. We agreed to perform delivery. She understands risks, benefits, and alternatives. She has completed the informed consent process and is ready to proceed.
[2024-09-14] MEDS: ONDANSETRON INJ 4 MG/2 ML VIAL IV PUSH ×2 (06:45→11:28)
[2024-09-14] MEDS: ACETAMINOPHEN 500 MG TABLET 1000 MG PO ×3 (06:46→19:11)
[2024-09-14] MEDS: FAMOTIDINE 20 MG/2 ML VIAL IV PUSH (06:46)
--- NOTE | 2024-09-14 06:48 | WPDHPUPDATE1 ---
History and Physical Update Update Date/Time: 09/14/24 06:48 History and Physical has been reviewed, including an updated exam of the patient. There are NO changes in the patient's condition. Risks, benefits, and alternatives have been discussed and questions answered. Patient agrees to proceed with procedure.
[2024-09-14] MEDS: MORPHINE SULFATE INJ (*CRX) 10 MG/ML AMP 2.5 MG IV PUSH (09:50)
[2024-09-14] MEDS: OXYTOCIN 30 UNITS/NS 500 ML 30 UNITS/500 ML BAG 125 UNITS IV CONT (09:55)
--- NOTE | 2024-09-14 10:40 | OBPPTRN ---
Patient transferred to post room #283 via stretcher. Support person present. Oriented to unit, room, information board, rooming in, admission packet and security measures. Patient verbalizes understanding.
[2024-09-14] MEDS: LIDOCAINE 5% PATCH 1 PATCH TRANSDERM ×2 (12:55→23:40)
[2024-09-14] MEDS: SCOPOLAMINE 1 MG PATCH 1 PATCH TRANSDERM (12:55)
[2024-09-14] MEDS: KETOROLAC 15 MG/ML VIAL (*BKC) IV PUSH ×2 (12:55→19:11)
[2024-09-14] MEDS: SIMETHICONE 80 MG TAB.CHEW PO (12:56)
[2024-09-14] MEDS: DEXTROSE 5%/0.45% SOD CHL 1,000 ML 125 ML IV CONT (15:05)
[2024-09-15 00:30] VITALS: BP 101/64; PULSE 69; RESP 14; TEMP 36.8; O2SAT 99
[2024-09-15] MEDS: KETOROLAC 15 MG/ML VIAL (*BKC) IV PUSH (01:01)
[2024-09-15] MEDS: ACETAMINOPHEN 500 MG TABLET 1000 MG PO ×4 (01:01→19:00)
[2024-09-15 04:09] VITALS: BP 100/65; PULSE 76; RESP 16; TEMP 36.7; O2SAT 99
[2024-09-15 04:28] LABS: Hematocrit 29.2 % (37.0-47.0); Hemoglobin 9.2 g/dL (12.0-15.0); Immature Granulocyte Percent A 0.7 % (0-0.5); Lymphocytes Absolute Auto 1.00 K/mm3 (0.9-3.2); Mean Corpuscular HGB Conc 31.5 g/dl (32-36); Mean Corpuscular Hemoglobin 29.1 pg (26-34); Mean Corpuscular Volume 92.4 fl (80-100); Nucleated Red Blood Cells Absolute Auto 0.000 K/mm3 (0.0-0.012); Nucleated Red Blood Cells Perc 0.0 % (0.0-0.2); Platelet Count Result 167 k/mm3 (150-375); Red Blood Count 3.16 M/mm3 (4.2-5.4); White Blood Count 13.8 K/mm3 (4.5-10.0)
[2024-09-15] MEDS: DOCUSATE SODIUM 100 MG CAPSULE PO ×2 (07:50→17:10)
[2024-09-15] MEDS: IBUPROFEN 600 MG TABLET PO ×3 (07:51→19:00)
[2024-09-15] MEDS: SIMETHICONE 80 MG TAB.CHEW PO ×3 (07:56→17:10)
[2024-09-15 08:00] VITALS: BP 132/70; PULSE 84; RESP 16; TEMP 36.9; O2SAT 98
--- NOTE | 2024-09-15 08:03 | P.PNOB_ITS ---
OB - PN: Subj Subjective Date/time seen: 09/15/24 08:03 Interval history: pp day 1 flatus present, appetite returned doing well OB - PN: Obj Data Labs 09/15/24 03:56 Labs: Laboratory Results - last 24 hr 09/15/24 03:56 WBC 13.8 H RBC 3.16 L Hgb 9.2 L Hct 29.2 L MCV 92.4 MCH 29.1 MCHC 31.5 L RDW 14.8 H Plt Count 167 MPV 11.4 H Immature Gran % (Auto) 0.7 H Neut % (Auto) 87.4 H Lymph % (Auto) 7.3 L [place] % (Auto) 4.0 Eos % (Auto) 0.4 Baso % (Auto) 0.2 Lymph # (Auto) 1.00 [place] # (Auto) 0.6 Eos # (Auto) 0.1 Baso # (Auto) 0.0 Abs Immat Gran (auto) 0.09 H Absolute Neuts (auto) 12.0 H Absolute Nucleated RBC 0.000 Nucleated RBC % 0.0 OB - PN A/P Plan day: 1 Time Spent With Patient Time: Total time spent is greater than 50% in coordination of care (as documented) at patient's floor/unit and/or counseling patient: Review of Systems 2 Review of Systems: All systems reviewed & are unremarkable except as noted in HPI and below Exam 2 Const: General: cooperative and healthy appearing Resp: Effort & Inspection: normal respiratory effort Cardio: Rate: regular rate GI: Other: incision CDI
--- NOTE | 2024-09-15 10:02 | WPDANLDPN2 ---
Anes-Prog Note L&D Date/Time: 09/15/24 10:02 Comfortable throughout: section (Converted to for arrest of labor) Neuraxial method: epidural Epidural/Spinal procedure site: clean & non-tender Neuro status: Neuro function grossly intact. Cardiovascular status: normal Respiratory status: normal Airway patency: baseline Mental status: baseline Post-Op hydration status: normal Vital Signs: Last Vital Signs Temp 36.9 C 09/15/24 08:00 Pulse 84 09/15/24 08:00 Resp 16 09/15/24 08:00 BP 132/70 09/15/24 08:00 Pulse Ox 98 09/15/24 08:00 O2 Del Method Room Air 09/14/24 11:00 Pain score (VAS): 3/10 I/O: Intake & Output 09/14/24 09/15/24 09/15/24 23:59 07:59 15:59 Intake Total 1000 500 Output Total 900 800 Balance 100 -300 Post-procedural complaints: none Patient feedback: Patient satisfied with anesthetic care.
[2024-09-15] MEDS: LIDOCAINE 5% PATCH 1 PATCH TRANSDERM (11:52)
[2024-09-15 19:00] VITALS: BP 125/78; PULSE 89; RESP 18; TEMP 36.4; O2SAT 99
[2024-09-16] MEDS: ACETAMINOPHEN 500 MG TABLET 1000 MG PO ×3 (01:00→15:05)
[2024-09-16] MEDS: IBUPROFEN 600 MG TABLET PO ×3 (01:00→15:06)
[2024-09-16] MEDS: SIMETHICONE 80 MG TAB.CHEW PO (07:39)
[2024-09-16] MEDS: DOCUSATE SODIUM 100 MG CAPSULE PO (07:39)
[2024-09-16 07:42] VITALS: BP 123/71; PULSE 84; RESP 16; TEMP 36.2; O2SAT 97
--- NOTE | 2024-09-16 09:17 | P.PNOB_ITS ---
OB - PN: Subj Subjective Date/time seen: 09/16/24 09:17 Interval history: pp day 2 flatus present, appetite returned doing well OB - PN: Obj Data Labs 09/15/24 03:56 OB - PN A/P Plan day: 2 Plan: routine care Time Spent With Patient Time: Total time spent is greater than 50% in coordination of care (as documented) at patient's floor/unit and/or counseling patient: Review of Systems 2 Review of Systems: All systems reviewed & are unremarkable except as noted in HPI and below Exam 2 Const: General: cooperative, healthy appearing and comfortable Chest: Chest palpation & inspection: normal inspection of the chest Resp: Effort & Inspection: normal respiratory effort GI: Other: incision CDI Skin: General skin exam: normal color Neuro: General: patient oriented x3
--- NOTE | 2024-09-16 10:54 | P.DS_ITS ---
DS: Admitting Diagnosis Discharge Date 09/16/24 Admitting Diagnosis IOL DS: Discharge Diagnosis Discharge Diagnosis (1) Delivery by section: Status: Acute OB - DS: Summary OB Procedures : None OB Procedures Intrapartum: Spontaneous Vag Delivery OB Procedures: : None Peripartum Data Procedures: Procedures Operation Date: 09/14/24 07:30 Actual Procedure Side Surgeon p Section Not Applicable Nik Grubbs MD Time Spent with Patient Time attestation: Total time spent providing and/or coordinating discharge services: Discharge Plan Discharge Attending physician on discharge: Nik Grubbs Discharging Clinician: Samantha Ellis Patient Disposition: Home Activity: pelvic rest Diet: regular Patient Instructions: Antibiotic Form Patient Language: Citizen Of [place] Stand Alone Forms: General Discharge Information Follow-up/Referrals: Samantha Ellis, [facility] [Certified Nurse Supervisor Mails] - (arelis 1 week millie 4 weeks) Discharge Medications: New hydrocodone-acetaminophen 2.5-325 mg tablet 2 tablet PO Q6H PRN (Reason: pain) 7 Days Qty: 40 0RF Discontinued aspirin 81 mg tablet 81 mg PO DAILY No Action PNV no.95-ferrous fumarate-FA [] 28 mg iron- 800 mcg tablet 1 tablet PO DAILY Date of admission: 09/13/24 04:55 Primary Care Provider: Millie Bell I. Admitting Provider: Nik Grubbs Attending physician on admission: Nik Grubbs Condition: Stable
--- NOTE | 2024-09-16 11:55 | W.PM.OBCSD ---
OB - Delivery Note Procedure Delivery date: 09/14/24 Pre-op diagnosis: Failed Induction of Labor Post-op Diagnosis: Same Procedure Performed: Primary Surgeon: Nik Grubbs MD Anesthesia type: Epidural Description of Procedure/Findings: The patient was taken the operating room.? She was prepped and draped in dorsal supine position with a leftward tilt.? This was done after spinal anesthetic was applied.? A low-transverse skin incision was made and carried down till of the fascia with the knife.? The fascial incision was made with the knife.? The fascial incision was extended laterally with Flores scissors.? The fascia was tented upward superiorly and inferiorly the rectus muscles were dissected off bluntly.? The rectus muscles were the midline.? The preperitoneal fat and peritoneum were dissected open bluntly at the superior aspect of the rectus muscles.? The peritoneal incision was extended superior and inferior with good position of bladder.? The uterine incision was made with a scalpel down to the level of the amniotic cavity.? The amniotic cavity was entered bluntly.? The was delivered.? The cord was clamped and cut and the infant was handed off to waiting pediatric staff.? Cord bloods were obtained.? The placenta was removed manually.? The uterus was exteriorized.? The uterus was cleared of all clots, debris and membranes.? The uterus was closed in 0 Vicryl running lock fashion.? An imbricating over a was placed along the incision line as well.? The uterus was returned to the abdomen.? The gutters were cleared of all clots and debris.? The fascia was closed with 0 Vicryl running fashion.? The subcutaneous tissue was irrigated pinpoint bleeders were cauterized.? The skin was closed with subcuticular absorbable armando.? The skin incision line was covered with glue.? The patient tolerated the procedure well.? She has taken recovery room in stable condition.? Sponge lap and needle counts were correct x2.? Urine Output: 800
[2024-09-18 11:16] VITALS: BP 139/71; PULSE 98; RESP 18; TEMP 37.2; O2SAT 100
--- NOTE | 2024-09-18 14:02 | PC.NURSE ---
1100- Patient here for OB follow up. Patient was just discharged from ER with depressions/anxiety symptoms. Per Alexis Ellis CNM, patient had a psych evaluation from staff there, has been prescribed Ambien for sleep, and will follow up with Alexis Ellis CNM in office. At appointment today, assessment completed, discussed mental health with patient and she states that she feels safe, does not want to hurt herself and does not want to hurt her baby. Patient states that she is very tired and attributes a lot of her feelings to this. Patient states that she does have a lot of support at home. Resources for Carmela Royal given, as well as MOM line number and patient aware to call Dr. Jacinto office, LIZY Matson or go immediately to ER if anything changes with her safety.
== END 2024-09-16 16:08 | disposition home or self-care (01) | DRG 788 ==
LOC: ANHLDR 05:10 → ANHOB2 09-14 10:45
PROVIDERS: Admitting Provider Obstetrics & Gynecology; PCP Physician Assistant Medical; Referring Provider Advanced Practice Midwife; Visit Provider Obstetrics & Gynecology
PROC: 10D00Z1 Extraction of Products of Conception, Low, Open Approach (ICD-10-PCS; CPT 59514; principal; 2024-09-14 07:30)
DX: O40.3XX0 Polyhydramnios, third trimester, not applicable or unspecified (principal); Z37.0 Single live birth; Z3A.39 39 weeks gestation of pregnancy; O61.0 Failed medical induction of labor
CPT/HCPCS: 36415; 85025; 86593; 86850; 86900; 86901; J0690; A9270; J1885; J2003; J2270; J2274; J2405; J2590; J2795; J3010; J7120

== ENCOUNTER 2024-09-18 08:31 | Emergency (ER) | payer OTHER, BC, SELFPAY ==
--- OUTSIDE RECORDS SUMMARY | 2024-09-18 08:34 | XMS_ITS | Referral Summary ---
Author Organization [facility] [address] [place] [id number] Care Team Providers Care Immigration Paralegal Name Role Phone Unknown, Notinfile Primary Care Provider Unavail able Adan Cantrell MD Unavailable [phone] Allergies Active Allergy Reactions Criticality Noted [...] kg (209 lb 9.6 oz) 10/08/2023 2:05 PM CDT Height 160 cm (5' 3) 10/08/2023 2:05 PM CDT Body Mass Index 37.13 10/08/2023 2:05 PM CDT Plan of Treatment Not on file Insurance [employer] ACCESS CHOICE [place] CHOICE [place]F PPO [place] Care Teams Immigration Paralegal Relationship Specialty Start Date End Date Unknown, Notinfile PCP - General 06/07/23 Adan Cantrell MD [address] [place] [address] 06/07/23
--- OUTSIDE RECORDS SUMMARY | 2024-09-18 08:34 | XMS_ITS | Data Portability ---
Author Organization [facility] Address [address] [place] [place] [address] [place] [address] Care Team Providers Care Diabetes Manager Name Role Phone QUINTERO, DAGOBERTO Primary Care Provider Assessment Encounter Date Assessment Date Assessment LastModified by Organization Details LastModified Time 09/08/2024 09/08/2024 Patient is 38___weeks . Discussed plan. Not available 09/08/2024 12:08:01 Plan of Treatment Reminders Order Date Submit Date Provider Last Modified By Organization Details Last Modified Time Details Appointments None recorded. Lab None recorded. Referral None recorded. Procedures None recorded. Surgeries None recorded. Imaging non-stress test 2024 025 arminda mar3 [address], [address], [place], [address], 22:04:32 US, obstetric, biophysical profile + non-stress test 2024 [address], [address], [place], [address], 23:34:31 US, obstetric, follow-up 2024 [email or web address], [address], [place], [address], 21:58:37 US, obstetric, biophysical profile + non-stress test 2024 025 [email or web address] [place], [address], [address], [place], [address], 21:58:37 Medication Orders None recorded. Patient TargetsNo targets recorded. Patient InstructionsNo instructions recorded. Reason for Referral None Reported. Results Created Date Observation Date Name Description Value Unit Range Abnormal Flag Note LastModifiedBy Organization Detail LastModifiedTime 08/05/1908/04/2024 CBC W/DIF F WBC 11.4 10'3/ uL 3.5-10 .5 high Not Available [facility] (Lab) [address], [place], [address], 08/05/2024 09:22:27 08/05/1908/04/2024 CBC W/DIF F RBC 4.13 10'6/ uL (based on docume nted legal sex) 3.80-5 .20 Not Available [facility] (Lab) [address], [place], [address], 08/05/2024 09:22:27 08/05/1908/04/2024 CBC W/DIF F HGB 12.1 g/dL (based on docume nted legal sex) 11.6-1 5.4 Not Available [facility] (Lab) [address], [place], [address], 08/05/2024 09:22:27 08/05/1908/04/2024 CBC W/DIF F HCT 37.7 % (based on docume nted legal sex) 34.0-4 5.0 Not Available [facility] (Lab) [address] [place], [address], 08/05/2024 09:22:27 08/05/1908/04/2024 CBC W/DIF F MCV 91.3 fL 80.0-9 9.0 Not Available [facility] (Lab) [address] [place], [address], 08/05/2024 09:22:27 08/05/1908/04/2024 CBC W/DIF F MCH 29.3 pg 27.0-3 4.0 Not Available [facility] (Lab) [address], [place], [address], 08/05/2024 09:22:27 08/05/19 25 08/04/2024 CBC W/DIF F MCHC 32.1 g/dL 32.0-3 5.5 Not Available [facility] (Lab) [address], [place], [address], 08/05/2024 09:22:27 08/05/1908/04/2024 CBC W/DIF F RDW 14.4 % 11.0-1 5.0 Not Available [facility] (Lab) [address], [place], [address], 08/05/2024 09:22:27 08/05/1908/04/2024 CBC W/DIF F plt 223 10'3/ uL 150-40 0 Not Available [facility] (Lab) [address], [place], [address], 08/05/2024 09:22:27 08/05/1908/04/2024 CBC W/DIF F MPV 11.6 fL 8.8-12 .1 Not Available [facility] (Lab) [address], [place], [address], 08/05/2024 09:22:27 08/05/1908/04/2024 CBC W/DIF F NRBC's 0.0 % 0.0 Not Available [facility] (Lab) [address], [place], [address], 08/05/2024 09:22:27 08/05/1908/04/2024 CBC W/DIF F absolute NRBCs 0.0 10'3/ uL no refere nce range establ ished Not Available [facility] (Lab) [address], [place], [address], 08/05/2024 09:22:27 08/05/19 25 08/04/2024 CBC W/DIF F neutrophils 79.7 % 34.0-7 3.0 high Not Available [facility] (Lab) [address] [facility], [place], [address], 08/05/2024 09:22:27 08/05/19 25 08/04/2024 CBC W/DIF F lymphocytes 12.8 % 15.0-5 0.0 low Not Available [facility] (Lab) [address] [facility], [place], [address], 08/05/2024 09:22:27 08/05/19 25 08/04/2024 CBC W/DIF F monocytes 5.5 % 1.0-15 .0 Not Available [facility] (Lab) [address] [facility], [place], [address], 08/05/2024 09:22:27 08/05/19 25 08/04/2024 CBC W/DIF F eosinophils 0.7 % 0.0-8. 0 Not Available [facility] (Lab) [address] [facility], [place], [address], 08/05/2024 09:22:27 08/05/19 25 08/04/2024 CBC W/DIF F basophils 0.1 % 0.0-2. 0 Not Available [facility] (Lab) [address] [place], [address], 08/05/2024 09:22:27 08/05/19 25 08/04/2024 CBC W/DIF [...] separ ately if prese nt. Not Available [facility] (Lab) [address] [facility], [place], [address], 08/05/2024 09:22:27 08/05/1908/04/2024 CBC W/DIF F absolute neutrophils 9.1 10'3/ uL 1.5-8. 0 high Not Available [facility] (Lab) [address] [facility], [place], [address], 08/05/2024 09:22:27 08/05/19 25 08/04/2024 CBC W/DIF F absolute lymphocytes 1.5 10'3/ uL 1.0-4. 0 Not Available [facility] (Lab) [address] [facility], [place], [address], 08/05/2024 09:22:27 08/05/1908/04/2024 CBC W/DIF F absolute monocytes 0.6 10'3/ uL 0.2-1. 0 Not Available [facility] (Lab) [address] [facility], [place], [address], 08/05/2024 09:22:27 08/05/19 25 08/04/2024 CBC W/DIF F absolute eosinophils 0.1 10'3/ uL 0.0-0. 6 Not Available [facility] (Lab) [address] [facility], [place], [address], 08/05/2024 09:22:27 08/05/19 25 08/04/2024 CBC W/DIF F absolute basophils 0.0 10'3/ uL 0.0-0. 3 Not Available [facility] (Lab) [address] [facility], [place], [address], 08/05/2024 09:22:27 08/05/1908/04/2024 CBC W/DIF F absolute immature granulocytes 0.1 10'3/ uL 0.00-0 .10 Refer ence range s for nonbi nary/ inter sex or unspe cifie d gende r patie nts have not been estab lishe d. Plejin e refer to the follo wing table for range s estab lishe d for cisge nder patie nts and evalu ate in the clini marcel yuliana xt of the indiv idual patidannie nt: https ://ze kong book. nm.or g/gen derx Not Available [facility] (Lab) [address] [facility], [place], [address], 08/05/2024 09:22:27 08/05/19 25 08/04/2024 CMP(C OMPRE HENSI VE METAB OLIC PANEL ) sodium 136 mmol/ L 133-14 6 Not Available [facility] (Lab) [address] [facility], [place], [address], 08/05/2024 09:22:27 08/05/19 25 08/04/2024 CMP(C OMPRE HENSI VE METAB OLIC PANEL ) potassium 3.8 mmol/ L 3.5-5. 1 Not Available [facility] (Lab) [address] [facility], [place], [address], 08/05/2024 09:22:27 08/05/19 25 08/04/2024 CMP(C OMPRE HENSI VE METAB OLIC PANEL ) chloride 104 mmol/ L 98-107 Not Available [facility] (Lab) [address] [facility], [place], [address], 08/05/2024 09:22:27 08/05/19 25 08/04/2024 CMP(C OMPRE HENSI VE METAB OLIC PANEL ) carbon dioxide 26 mmol/ L 21-31 Not Available [facility] (Lab) [address] [facility], [place], [address], 08/05/2024 09:22:27 08/05/19 25 08/04/2024 CMP(C OMPRE HENSI VE METAB OLIC PANEL ) anion gap 6 mmol/ L 4-13 Not Available [facility] (Lab) [address] [place], [address], 08/05/2024 09:22:27 08/05/19 25 08/04/2024 CMP(C OMPRE HENSI VE METAB OLIC PANEL ) blood urea nitrogen 8 mg/dL 7-25 Not Available [facility] (Lab) [address] [facility], [place], [address], 08/05/2024 09:22:27 08/05/19 25 08/04/2024 CMP(C OMPRE HENSI VE METAB OLIC PANEL ) creatinine 0.53 mg/dL 0.60-1 .30 low Not Available [facility] (Lab) [address] [facility], [place], [address], 08/05/2024 09:22:27 08/05/19 25 08/04/2024 CMP(C OMPRE HENSI VE METAB OLIC PANEL ) egfrcr (CKD-epi 2020) >90 mL/mi n/1.7 3_m2 >=60 Not Available [facility] (Lab) [address] [facility], [place], [address], 08/05/2024 09:22:27 08/05/19 25 08/04/2024 CMP(C OMPRE HENSI VE METAB OLIC PANEL ) calcium 9.3 mg/dL 8.3-10 .5 Not Available [facility] (Lab) [address] [facility], [place], [address], 08/05/2024 09:22:27 08/05/19 25 08/04/2024 CMP(C OMPRE HENSI VE METAB OLIC PANEL ) glucose 102 mg/dL 70-100 high Not Available [facility] (Lab) [address] [facility], [place], [address], 08/05/2024 09:22:27 08/05/19 25 08/04/2024 CMP(C OMPRE HENSI VE METAB OLIC PANEL ) protein, total 6.2 g/dL 6.4-8. 3 low Not Available [facility] (Lab) [address] [facility], [place], [address], 08/05/2024 09:22:27 08/05/19 25 08/04/2024 CMP(C OMPRE HENSI VE METAB OLIC PANEL ) albumin 3.7 g/dL 3.5-5. 0 Not Available [facility] (Lab) [address] [facility], [place], [address], 08/05/2024 09:22:27 08/05/19 25 08/04/2024 CMP(C OMPRE HENSI VE METAB OLIC PANEL ) ALT 8 units /L 9-43 low Not Available [facility] (Lab) [address] [facility], [place], [address], 08/05/2024 09:22:27 08/05/19 25 08/04/2024 CMP(C OMPRE HENSI VE METAB OLIC PANEL ) alkaline phosphatase 101 units /L 34-104 Not Available [facility] (Lab) [address] [facility], [place], [address], 08/05/2024 09:22:27 08/05/19 25 08/04/2024 CMP(C OMPRE HENSI VE METAB OLIC PANEL ) AST 10 units /L 13-39 low Not Available [facility] (Lab) [address] [facility], [place], [address], 08/05/2024 09:22:27 08/05/19 25 08/04/2024 CMP(C OMPRE HENSI VE METAB OLIC PANEL ) bilirubin, total 0.2 mg/dL 0.2-1. 2 Not Available [facility] (Lab) [address] [facility], [place], [address], 08/05/2024 09:22:27 08/05/1908/04/2024 URIC ACID uric acid 4.3 mg/dL 2.3-6. 6 Not Available [facility] (Lab) [address] [place], [address], 08/05/2024 09:22:28 08/05/19 25 08/04/2024 PROTE IN/CR EATIN INE RATIO , URINE creatinine, urine 161.7 mg/dL R-No refer ence range estab lishe d for this assay Not Available [facility] (Lab) [address] [facility], [place], [address], 08/05/2024 09:22:28 08/05/19 25 08/04/2024 PROTE IN/CR EATIN INE RATIO , URINE protein, urine 21 mg/dL R-No refer ence range estab lishe d for this assay Not Available [facility] (Lab) [address] [facility], [place], [address], 08/05/2024 09:22:28 08/05/19 25 08/04/2024 PROTE IN/CR [...] fican t prote inuri a. Not Available [facility] (Lab) [address] [facility], [place], [address], 08/05/2024 09:22:28 08/19/19 25 08/18/2024 CULTU RE: GROUP B STREP SCREE N, REFLE X SUSCE PTIBI LITY result report SEE RESULT S BELOW Test: Cultu re: Group B Strep , Refle x Susce ptibi lity ([facility] ) Speci men Sourc e: Vagin a/Rec elio Speci men Type: Vagin al/Re ctal Speci men Date: 2024 1614 Resul t Date: 2024 1404 Resul t Statu s: Final resul t Abnor mal: No Resul ting Lab: [facility] [address] [facility] [address] Tel: CULTU RE ----- ----- ----- --- No Group B strep isola amanda at 2 days (estee ctive broth enhan cemen t) Not Available [facility] (Lab) [address] [facility], [place], [address], 08/21/2024 15:07:39 08/05/19 25 08/04/2024 US, obste tric, follo w-up No observ ation record ed. [facility] [address], [place], [address], 08/04/2024 18:40:44 08/05/19 25 08/04/2024 US, obste tric, bioph ysica l profi le No observ ation record ed. [facility] [address], [place], [address], 08/04/2024 18:40:55 08/05/19 25 08/04/2024 US, obste tric, follo w-up No observ ation record ed. [email or web address] [address], [place], [address], 08/09/2024 17:07:15 08/08/19 25 08/07/2024 non-s tress test No observ ation record ed. [email or web address] [place] [address], [place], [address], 08/07/2024 11:46:38 08/08/19 25 08/04/2024 non-s tress test No observ ation record ed. [email or web address] Not Available 08/07 11:48:34 08/12/19 25 08/11/2024 US, obste tric, bioph ysica l profi le + non-s tress test No observ ation record ed. [facility] [address], [place], [address], 08/11/2024 17:27:45 08/12/19 25 08/11/2024 US, obste tric, bioph ysica l profi le + non-s tress test No observ ation record ed. [email or web address] [address], [place], [address], 08/15/2024 15:20:47 08/15/19 25 08/11/2024 non-s tress test No observ ation record ed. [email or web address] [place] [address], [place], [address], 08/14/2024 08:50:42 08/15/19 25 08/11/2024 non-s tress test No observ ation record ed. [email or web address] [place] [address], [place], [address], 08/14/2024 11:55:03 08/19/19 25 08/21/2024 US, obste tric, bioph ysica l profi le + non-s tress test No observ ation record ed. [email or web address] [place] [address], [place], [address], 08/21/2024 12:14:22 08/19/19 25 08/18/2024 US, obste tric, follo w-up No observ ation record ed. [email or web address] [address], [place], [address], 08/21/2024 08:42:18 08/22/19 25 08/21/2024 non-s tress test No observ ation record ed. [email or web address] [place] [address], [place], [address], 08/21/2024 17:58:22 08/25/19 25 08/24/2024 US, obste tric, bioph ysica l profi le + non-s tress test No observ ation record ed. [email or web address] [place] [address], [place], [address], 08/24/2024 16:02:10 08/25/19 25 08/24/2024 US, obste tric, bioph ysica l profi le + non-s tress test No observ ation record ed. [facility] [address], [place], [address], 08/24/2024 16:57:33 08/29/19 25 08/28/2024 non-s tress test No observ ation record ed. [email or web address] [place] [address], [place], [address], 08/28/2024 09:09:00 09/02/19 25 09/01/2024 US, obste tric, follo w-up No observ ation record ed. [facility] [address], [place], [address], 09/01/2024 17:48:48 09/02/19 25 09/01/2024 US, obste tric, bioph ysica l profi le + non-s tress test No observ ation record ed. [facility] [address], [place], [address], 09/01/2024 17:49:00 09/02/19 25 09/01/2024 US, obste tric, follo w-up No observ ation record ed. [email or web address] [address], [place], [address], 09/04/2024 23:06:06 09/02/19 25 09/01/2024 non-s tress test No observ ation record ed. [email or web address] [place] [address], [place], [address], 09/01/2024 15:27:15 09/09/19 25 09/08/2024 US, obste tric, bioph ysica l profi le + non-s tress test No observ ation record ed. [facility] [address], [place], [address], 09/08/2024 17:49:39 09/09/1909/08/2024 US, obste tric, follo w-up No observ ation record ed. [email or web address] [address], [place], [address], 09/11/2024 20:57:03 09/09/19 25 09/08/2024 non-s tress test No observ ation record ed. [place] [address], [place], [address], 09/08/2024 12:00:50 Result Notes None recorded. Problems Name Problem SNOMED Code Status Onset Date Resolution Date Notes Provider Name and Address Organization Details Recorded Time 47843585 Active 2024 Gabriella hunt [facility] 20:02:03 Mixed anxiety and depressive disorder 123913440 Active 2024 Gabriella hunt, [facility] 20:02:26 Polyhydramnio s 11352973 Active 2024 mild Faby Lambert [facility], [facility] 5 20:57:37 Polyhydramnio s 59826998 Active 2024 mild Faby Lambert [facility], [facility] 20:57:37 Problem Notes None recorded. Procedures Surgical History Date Name Laterality Status Provider Name and Address Organization Details Recorded Time 02/07/20 24 Date of Last Pap Smear completed Gabriella Kay [facility] 07/07/2024 19:54:23 03/19/19 24 Endometrial Biopsy completed Gabriella Kay [facility] 07/07/2024 19:58:32 03/09/19 24 Colposcopy completed Gabriella Kay [facility] 06/30/2024 09:38:54 03/09/19 24 Colposcopy completed [facility] 06/30/2024 09:43:29 03/08/19 24 procedure on gallbladder completed [facility] 07/07/2024 19:59:29 10/17/19 23 cholecystectomy completed [facility] 06/30/2024 09:44:34 02/22/19 14 extraction of wisdom tooth completed [facility] 07/07/2024 20:00:24 Imaging Results None recorded. Procedure Notes None recorded. Medical Equipment None Reported. Allergies Allergen ID Allergen Name Allergen Category Reaction Reaction Severity Criticality Documentation Date Start Date Code Code System Note Provider Name and Address Organization Details Recorded Time 65729 amoxicill in medicatio n rash moderate Not available 07/07/2024 723 RxNorm Gabriella Kay [facility] 19:53:51 97562 Penicilli n Not available rash moderate Not available 07/07/2024 85538 RxNorm Gabriellailan Kay [facility] 19:53:51 Medications Name Sig Start Date Stop Date Status Note LastModified by Organization Details LastModified Time active Not Available Not Avai lable Not Available Baby Aspirin active Not Available Not Available Not Available Vitals Date Recorded Body height Body mass index (BMI) Body weight Systolic And Diastolic Provider Name and Address Organization Details Last Updated DateTime 09/01/2024 160.02 cm 43 kg/m2 769701.95 g 132/79 mm[Hg] Belén [facility] 09/01/2024 14:44:00 Date Recorded Body height Body mass index (BMI) Body weight Systolic And Diastolic Provider Name and Address Organization Details Last Updated DateTime 09/08/2024 160.02 cm 43.8 kg/m2 916214.32 g 130/85 mm[Hg] Belén [facility] 09/08/2024 10:34:40 Social History Question Answer Notes LastModified by Organizat ion Details LastModified Time Tobacco Smoking Status Former Smoker Gabriella Kay [facility] 07/07/2024 19:57:44 Do You Have An Advance Directive? No [email or web address] Information not available 07/07/2024 If You Are , What Was Your Level Of Alcohol Consumption Prior To ? Occasional [email or web address] Information not available 07/07/2024 How Many Years Have You Consumed Alcohol? 7 [email or web address] Information not available 07/07/2024 Are You Blind Or Do You Have Difficulty Seeing? No Information not available 07/07/2024 What Is Your Level Of Caffeine Consumption? Occasional [email or web address] Information not available 07/07/2024 How Much Tobacco Do You Chew? None [email or web address] Information not available 07/07/2024 In The 14 Days Before Symptom Onset, Have You Had Close Contact With A Laboratory-confir med COVID-19 While That Case Was Ill? No [email or web address] Information not available 07/07/2024 In The 14 Days Before Symptom Onset, Have You Had Close Contact With A Person Who Is Under Investigation For COVID-19 While That Person Was Ill? No [email or web address] Information not available 07/07/2024 Have You Been To An Area Known To Be High Risk For COVID-19? No [email or web address] Information not available 07/07/2024 Are You Deaf Or Do You Have Serious Difficulty Hearing? No [email or web address] Information not available 07/07/2024 What Type Of Diet Are You Following? REGULAR [email or web address] Information not available 07/07/2024 What Is The Highest Grade Or Level Of School You Have Completed Or The Highest Degree You Have Received? [id number] [email or web address] Information not available 07/07/2024 Are There Any Guns Present In Your Home? Yes [email or web address] Information not available 07/07/2024 Do You Use Protection During Sex? No Information not available 07/07/2024 Do You Use Your Seat Belt Or Car Seat Routinely? Yes [email or web address] Information not available 07/07/2024 Do You Have Smoke And Carbon Monoxide Detectors In Your Home? Yes [email or web address] Information not available 07/07/2024 At What Age Did You Start Smoking Tobacco? 18 [email or web address] Information not available 07/07/2024 How Much Tobacco Do You Smoke? No [email or web address] Information not available 07/07/2024 Do You Use Sunscreen Routinely? No Information not available 07/07/2024 How Many Years Have You Smoked Tobacco? 2 [email or web address] Information not available 07/07/2024 Have You Used IV Drugs? No [email or web address] Information not available 07/07/2024 Do You Have Difficulty Walking Or Climbing Stairs? No [email or web address] Information not available 07/07/2024 Sex: Unknown Functional Status Question Answer Note LastModified by Organizat ion Details LastModified Time Do you use any illicit or recreational drugs? No [email or web address] Information not available 07/07/2024 Do you or have you ever used any other forms of tobacco or nicotine? Yes [email or web address] Information not available 07/07/2024 What is your level of alcohol consumption? None [email or web address] Information not available 07/07/2024 Are you able to walk? YESWOREST [email or web address] Information not available 07/07/2024 Are you able to care for yourself independently? Yes [email or web address] Information not available 07/07/2024 What is your occupation? [employer] Information not available 07/07/2024 Do you have difficulty dressing, bathing, grooming, or toileting? No [email or web address] Information not available 07/07/2024 Do you or have you ever used e-cigarettes or vape? Former user of electronic cigarettes [email or web address] Information not available 07/07/2024 What is your exercise level? None [email or web address] Information not available 07/07/2024 Mental Status Question Answer Note LastModified by Organization D etails LastModified Time Do you feel stressed (tense, restless, nervous, or anxious, or unable to sleep at night)? [id number] [email or web address] Information not available 07/07/2024 Family History Relationship Description Onset Age of this Age Resolved Age Notes LastModified by Organization Details LastModified Time Mother Anxiety disorder [email or web address] Not available 07/07 19:53:51 Mother Depressive disorder [email or web address] Not available 07/07 19:57:18 Paternal Uncle Substance abuse Not available 2024 14:04:57 Brother Anxiety disorder [email or web address] Not available 07/07 19:53:51 Brother Diabetes mellitus [email or web address] Not available 07/07 19:53:51 Maternal Grandfather Heart disease [email or web address] Not available 07/07 19:53:51 Paternal Grandfather Heart disease [email or web address] Not available 07/07 19:53:51 Paternal Grandfather Diabetes mellitus [email or web address] Not available 07/07 19:53:51 Medical History Condition [...] SNOMED-CT Code Diagnosis ICD10 Code Diagnosis Note [id number] Samantha Ellis [facility] [address],[place] [address] 07/07/2024 09:32:06 07/12/2024 06:17:44 Gestation period, 30 weeks 02446643 Z3A.30 [id number] Nik Grubbs MD [place] [address],[place] [address] 07/22/2024 10:43:10 07/22/2024 11:21:18 Third trimester 18626507 Z34.03 [id number] Nik Grubbs MD [place] [address],[place] [address] 08/04/2024 15:29:17 08/04/2024 16:42:55 Excessive weight gain during [id number] O99.210 O40.9XX0 Z3A.33 [id number] Samantha Ellis [facility] [address],[place] [address] 08/04/2024 15:50:33 08/07/2024 06:28:39 Gestation period, 33 weeks 40552334 Z3A.33 [id number] Samantha Ellis [facility] [address],[place] [address] 08/07/2024 11:43:22 08/07/2024 12:15:15 Polyhydramnios [id number] O40.3XX0 [id number] [facility] [address],[place] [address] 08/11/2024 11:27:13 08/14/2024 09:18:19 Polyhydramnios [id number] O40.3XX0 [id number] Samantha Ellis [facility] [address],[place] [address] 08/11/2024 11:27:36 08/11/2024 12:54:14 Gestation period, 34 weeks [id number] Z3A.34 [id number] Nik Grubbs MD [place] [address],[place] [address] 08/11/2024 11:28:08 08/11/2024 13:18:48 Maternal obesity complicating , childbirth and the puerperium, antepartum 8090561644 07 O99.210 O40.3XX0 Z3A.34 [id number] Nik Grubbs MD [place] [address],[place] [address] 08/18/2024 08:57:45 08/18/2024 09:21:38 Polyhydramnios 15989553 O40.3XX0 O99.210 Z3A.35 [id number] SANTIAGO OGDEN MD [place] [address],[place] [address] 08/18/2024 08:58:09 08/22/2024 09:51:37 Polyhydramnios 20326983 O40.9XX0 [id number] Samantha Ellis [facility] [address],[place] [address] 08/18/2024 08:58:25 08/18/2024 11:01:33 Gestation period, 35 weeks 06228141 Z3A.35 [id number] SANTIAGO OGDEN MD [place] [address],[place] [address] 08/24/2024 14:04:36 08/24/2024 15:48:14 Maternal obesity complicating , childbirth and the puerperium, antepartum 3843629200 07 O99.210 O40.3XX0 Z3A.36 [id number] SANTIAGO OGDEN MD [place] [address],[place] [address] 08/24/2024 14:04:53 08/28/2024 09:35:36 Polyhydramnios 48169144 O40.9XX0 [id number] SANTIAGO OGDEN MD [place] [address],[place] [address] 08/24/2024 14:07:32 08/24/2024 15:47:18 Polyhydramnios 14456909 O40.9XX0 Gestation period, 36 weeks 08522583 Z3A.36 [id number] Nik Grubbs MD [place] [address],[place] [address] 09/01/2024 13:27:50 09/01/2024 14:28:05 Maternal obesity complicating , childbirth and the puerperium, antepartum 8181943039 07 O99.210 O40.3XX0 Z3A.37 [id number] Samantha Ellis [facility] [address],[place] [address] 09/01/2024 13:28:09 09/01/2024 15:30:52 Polyhydramnios 79925869 O40.9XX0 [id number] Samantha Ellis [facility] [address],[place] [address] 09/01/2024 13:28:25 09/01/2024 15:13:02 Gestation period, 37 weeks 73526157 Z3A.37 [id number] Nik Grubbs MD [place] [address],[place] [address] 09/08/2024 10:24:16 09/08/2024 11:00:25 Maternal obesity complicating , childbirth and the puerperium, antepartum 6989916012 07 O99.210 O40.3XX0 Z3A.38 [id number] Samantha Ellis [facility] [address],[place] [address] 09/08/2024 10:24:35 09/08/2024 13:41:24 Polyhydramnios 98263864 O40.9XX0 [id number] Samantha Ellis [facility] [address],[place] [address] 09/08/2024 10:24:49 09/08/2024 12:08:50 Gestation period, 38 weeks 31875320 Z3A.38 [id number] Samantha Ellis CNM [place] [address] [address] 09/13/2024 08:51:33 09/13/2024 09:13:38 Health Concerns Section Related Observation LastModified by Organization Detai ls LastModified Time None Recorded Concern Status LastModified by Organization Details LastModified Time None Recorded Advance Directives Directive N: Payers Insurance Date Sequence Insurance Name Policy Number Policy Amato Covered Member ID Amato Member ID Guarantor Name 09/12/2024 2 [place] [id number] Mau Skelt [id number] Brielle Skelt 09/13/2024 2 [facility] [id number] Brielle Skelt [id number] Brielle Skelt 09/12/2024 1 [facility] (POS) [id number] Brielle Skelt [id number] Brielle Skelt OBGyn Episode Ob Episode Information Episode Created Date Number of Fetuses Patient Bloodtype Patient rh Status Prepregnancy Weight lbs Domestic Partner Domestic Partner Phone Father Name Auto Electrician Status 07/08/19 25 1 O Negative 214 Mau Sklet OPEN Fetus Data First Name Last Name Admitted to NICU Weight (g) Sex Living Outcome Pediatric Complications Fetus ID Race Codes Race Delivery Type [id number] Problems Problem Notes Problem Name Start Date End Date Resolution Snomed Code Not e Mixed anxiety and depressive disorder 07/07/2024 [id number] Polyhydramnios 08/04/2024 04093418 mild Dheeraj Calculation Initial Dheeraj Date Initial Exam Date Initial Exam Provider Initial Ultrasound Date Last Menstrual Period Date Ultra Sound Weeks Gestation 08/25/2024 07/07/2024 [email or web address] 02/09/2024 11/19/2023 0 Eighteen To Twenty Week [...] Weight in lbs Pre/Post Dialysis Refused Weight 226.871111758356 BP Diastolic BP Location Tested BP Systolic BP Type 82 123 Fetus Heart Rate Present Fetus Movement A Yes Comments [place] [facility] [facility] in [place] sending records request. Patient states that has [...] Weight in lbs Pre/Post Dialysis Refused Weight 231.656705913791 BP Diastolic BP Location Tested BP Systolic [...] Type Weight in lbs Pre/Post Dialysis Refused 236.732767795675 BP Diastolic BP Location Tested BP Systolic [...] Weight in lbs Pre/Post Dialysis Refused Weight 236.182992482140 BP Diastolic BP Location Tested BP Systolic [...] Weight in lbs Pre/Post Dialysis Refused Weight 237.4700655364 BP Diastolic BP Location Tested BP Systolic BP Type 82 139 Fetus Heart Rate Present Fetus Movement Comments Flowsheet Date 08/11/2024 Rubi Score Blood Edema Fundus Height Fundus Units Glucose Ketones Leukocytes Nitrite Labor Signs Protein Cervic Dilation Cervic Effacement Cervic Station neg none Type Weight in lbs Pre/Post Dialysis Refused Weight 237.9261371817 BP Diastolic BP Location Tested BP Systolic BP Type 82 134 Fetus Heart Rate Present Fetus Movement A Yes Comments Patient states that is not s leeping, contractions, swelling and nausea. NST R, [facility] for [facility] [facility], call for preadmit, precautions and [...] Type Weight in lbs Pre/Post Dialysis Refused 237.950504602451 BP Diastolic BP Location Tested BP Systolic [...] Type Weight in lbs Pre/Post Dialysis Refused 241.15521278249 BP Diastolic BP Location Tested BP Systolic [...] Weight in lbs Pre/Post Dialysis Refused Weight 243.344692397755 BP Diastolic BP Location Tested BP Systolic [...] Weight in lbs Pre/Post Dialysis Refused Weight 247.025000992923 BP Diastolic BP Location Tested BP Systolic BP Type 85 L arm 130 sitting Fetus Heart Rate Present Fetus Movement A Yes Comments bpp 8/8, doing well educatio n and precautions +FM, IOL next week Flowsheet Date 09/13/2024 Rubi Score Blood Edema Fundus Height Fundus Units Glucose Ketones Leukocytes Nitrite Labor Signs Protein Cervic Dilation Cervic Effacement Cervic Station Type Weight in lbs Pre/Post Dialysis Refused BP Diastolic BP Location Tested BP Systolic BP Type Fetus Heart Rate Present Fetus Movement Comments Menstrual History Last Menstrual Date Menses Monthly [...]
--- OUTSIDE RECORDS SUMMARY | 2024-09-18 08:34 | XMS_ITS | Data Portability ---
Author Organization [facility], [id number] Address [address] [place] [address] Assessment No assessment recorded. Plan of Treatment [...] my No observ ation record ed. [email or web address] [facility] [address] [place], [address], 05/25/2024 09:44:24 06/17/19 25 04/27/2024 US, obste tric, follo w-up No observ ation record ed. [email or web address] [facility] [address] [place], [address], 06/20/2024 08:46:11 06/20/19 25 06/02/2024 US, obste tric, limit ed No observ ation record ed. [email or web address] [facility] [address] [place], [address], 06/19/2024 16:57:52 06/20/19 25 06/02/2024 US, obste tric, limit ed No observ ation record ed. [facility] [address] [place], [address], 06/19/2024 16:24:50 Result Notes None recorded. Problems Name Problem SNOMED Code Status Onset Date Resolution Date Notes Provider Name and Address Organization Details Recorded Time 52241262 Completed 202408/31/2024 Verónica Mejia [facility], [facility] 16:57:33 Psoriasis 4672127 Active 2024 YAZAN PATE [address], [place], [place], [address], [facility] 09:13:48 Gestation period, 27 weeks 56041273 Active 2024 DEMOND PATE [address], [place], [place], [address], [facility] 10:11:34 Problem Notes None recorded. Procedures Surgical History Date Name Laterality Status Provider Name and Address Organization Details Recorded Time Date of Last Pap Smear completed Gerri Hager [facility] 04/27/2024 10:57:45 024 cholecystectomy completed Gerri Hager [facility] 04/27/2024 11:00:12 024 colposcopy completed Gerri Hager [facility] 04/27/2024 10:59:20 024 endometrial biopsy completed Gerri Hager [facility] 04/27/2024 10:59:53 extraction of wisdom tooth completed Gerri Hager [facility] 04/27/2024 11:00:23 Other completed Gerri yecenia [facility] 04/27/2024 12:23:37 Laparoscopic cholecystectomy completed Not Available [facility] 06/22/2024 16:03:10 endometrial biopsy completed Not Available [facility] 06/22/2024 16:03:10 colposcopy completed Not Available [facility] 06/22/2024 16:03:10 Imaging Results None recorded. Procedure Notes None recorded. Medical Equipment None Reported. Allergies Allergen ID Allergen Name Allergen Category Reaction Reaction Severity Criticality Documentation Date Start Date Code Code System Note Provider Name and Address Organization Details Recorded Time 24010926 Product containin g penicilli n (product) medicatio n Not available Not available Not available 04/27/2024 88120 8001 SNOMED Gerri zavala [facility] 10:55:30 394436 amoxicill in medicatio n Not available Not available Not available 04/27/2024 723 RxNorm Gerri zavala [facility] 10:56:02 Medications Name Sig Start Date Stop [...] Address Organization Details Last Updated DateTime 04/27/2024 31283.485 654 g 37.9 kg/m2 160.02 cm 118/72 mm[Hg] Gerri Hager [facility] 04/27/2024 12:23:14 Date Recorded Body weight Systolic And Diastolic Provider Name and Address Organization Details Last Updated DateTime 05/24/2024 38093.18411 g 114/62 mm[Hg] Marlene Álvarez [facility] 05/24/2024 08:57:27 Date Recorded Body weight Systolic And Diastolic Provider Name and Address Organization Details Last Updated DateTime 06/19/2024 178883.93119 g 120/60 mm[Hg] Ephraim Hutchins [facility] 06/19/2024 09:48:11 Social History Question Answer Notes LastModified by Organizat ion Details LastModified Time Tobacco Smoking Status Former Smoker Gerri Alley [facility] 04/27/2024 12:23:37 Do You Have An Advance [...] available 04/27/2024 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 Information not available 06/22/2024 Mental Status [...] available 06/22/2024 17:57:38 Medical History Condition Response Cancer- Genetic screening No diseases or conditions Y Gynecological History Statement/Question Response Flow Moderate History [...] HPV, unspecified formulation 7 completed Gerri hunt, [facility] 04/27/2024 10:56:51 SARS-COV-2 (COVID-19) vaccine, UNSPECIFIED 1 completed Gerri hunt [facility] 04/27/2024 10:57:12 HPV, quadrivalent 7 completed Not Available [facility] 06/22/2024 11:58:08 Past Encounters Encounter ID Performer Location Encounter Start Date Encounter Closed Date Diagnosis/Indication Diagnosis SNOMED-CT Code Diagnosis ICD10 Code Diagnosis Note [id number] MAURY LYONS RD, MD [id number] M[place] [address] 04/27/2024 12:16:09 04/27/2024 12:38:16 Routine care 431568627 Z34.[id number], MD [id number] MUKESH Solomon [place] [address] 05/24/2024 08:49:12 05/24/2024 09:15:40 Psoriasis 7361120 L40.9 Routine an tenatal care 450862431 Z34.02 [id number] TRAN DIEZ MD [id number] [place] [facility] [address] [place], [place] [address] [place] [address] 06/19/2024 09:28:42 06/19/2024 10:27:11 Gestation period, 27 weeks 96248206 Z3A.27 Second tri mester 70622089 Z34.02 Health Concerns Section Related Observation LastModified by Organization Detai ls LastModified Time None Recorded Concern Status LastModified by Organization Details LastModified Time None Recorded Advance Directives Directive N: Payers Insurance Date Sequence Insurance Name Policy Number Policy Amato Covered Member ID Amato Member ID Guarantor Name 07/19/2024 1 [facility] [id number] [facility] [id number] Briellepavan [place] 07/19/2024 2 [place] [id number] Mau [place] [id number] Brielle Carlisle OBGyn Episode Ob Episode Information Episode Created Date Number of Fetuses Patient Bloodtype Patient rh Status Prepregnancy Weight lbs Domestic Partner Domestic Partner Phone Father Name Obiee Architect Status 04/05/19 25 1 O Positive 214 CLOSED Fetus Data First Name Last Name Admitted to NICU Weight (g) Sex Living Outcome Pediatric Complications Fetus ID Race Codes Race Delivery Type [id number] Dheeraj Calculation Initial Dheeraj Date Initial Exam [...] Type Weight in lbs Pre/Post Dialysis Refused 214.879901349219 BP Diastolic BP Location Tested BP Systolic BP Type 72 L arm 118 sitting Fetus Heart Rate Present A 145 Present Fetus Movement A Yes Comments 20 week U/S done at [facility] today. No concerns. Doing well feeling baby Flowsheet Date 05/24/2024 Rubi Score Blood Edema Fundus Height Fundus Units Glucose Ketones Leukocytes Nitrite Labor Signs Protein Cervic Dilation Cervic Effacement Cervic Station trace 23 cm none none neg Type Weight in lbs Pre/Post Dialysis Refused 217.361500023613 BP Diastolic BP Location Tested BP Systolic BP Type 62 114 Fetus Heart Rate Present A 158 Present Fetus Movement A Yes Comments has an itchy patch between b reastdoing well, c/o itchy rash on breasts x 2 days. hx of psoriasis-appears to be flair or eczematous rash. has topical steroids at home from director of audiology-just got them since being -not sure what drug it is- will call to let us know. has not been using it under breasts. -beckie Flowsheet Date 06/19/2024 Rubi Score Blood Edema Fundus Height Fundus Units Glucose Ketones Leukocytes Nitrite Labor Signs Protein Cervic Dilation Cervic Effacement Cervic Station none 29 cm none none neg Type Weight in lbs Pre/Post Dialysis Refused 222.58244259739 BP Diastolic BP Location Tested BP Systolic BP Type 60 120 Fetus Heart Rate Present A Present Fetus Movement A Yes Comments Doing well. No concerns wiley coronado-bdk hx/rx rv'd doing okay no concerns pt is moving care mw Menstrual History Last Menstrual Date Menses Monthly On Bcp Conception Prior Menses Frequency Hcg Plus Date Menarche Onset Age 1012/06/2023 Genetic Screening And Infection History Question Response Note Mental Retardation/Autism true FOB ne phew Patient's Age Will Be 35 Yea rs Or Older At Estimated Date of Delivery false Thalassemia (Swiss, Tunisian, Mediterranean, Or Background): MCV < 80 false Neural Tube Defect (Meningom yelocele, Spina Bifida, Or Anencephaly) false Congenital Heart Defect false Down Syndrome false Doc-Sachs (eg, Protestant, Cajun, Chinese-Northern Irish) f alse Awilda Disease false Sickle Cell Disease Or Trait () false Hemophilia Or Other Blood Disorders false Muscular Dystrophy false Cystic Fibrosis false Zahra's Chorea false Intellectual Disability/Autism false If Yes, [...]
--- OUTSIDE RECORDS SUMMARY | 2024-09-18 08:34 | XMS_ITS | Clinical Summary ---
Author Organization [facility] [address] Address [address] [place] [address] Care Team Providers Care Sales Technician Home Theater Name Role Phone Unknown, Notinfile Primary Care Provider Unavail able Adan Cantrell MD Unavailable [phone] Allergies Active Allergy Reactions Criticality Noted [...] history exists Regular Well Visit/Exam 18-64 09/28/2013 HPV Vaccines (1 - 3-dose SCDM series) 09/28/2022 Influenza Vaccine (#1) 2024 Hepatitis B Screening Completed 05/09/1996 , 1995, 1995 Pneumococcal vaccine <65 Aged Out No longer eligible based on patient's age to complete this topic Insurance [facility] ACCESS CHOICE [facility] CHOICE CHOICE [facility] [place] Care Teams Sales Technician Home Theater Relationship Specialty Start Date End Date Unknown, Notinfile PCP - General 06/07/23 Adan Cantrell MD [facility] [place], [place] [id number] 06/07/23
--- OUTSIDE RECORDS SUMMARY | 2024-09-18 08:34 | XMS_ITS | Clinical Summary ---
Author Organization [facility] Address Counts include 234 beds at the [facility] [place] [address] Care Team Providers Care Food Safety Technician Name Role Phone Millie Bell Primary Care Provider [phone] Encounters Date Type Department Care Team Description 07/06/2024 7:10 AM CDT - 07/06/2024 11:59 PM CDT Hospital Encounter [facility] [address] [place] [address] Marlene Villafuerte CNM Discharge Disposition: Home or Self Care (Routine Discharge) 07/06/2024 Orders Only [facility] [address] [place] [address] Marlene Villafuerte CNM 07/06/2024 Travel from Last [...] VE NON-REACTI VE 07/06/2024 3:29 PM CDT [facility] Comment: No serologic evidence of syphilis. No follow-up necessary unless clinically indicated. 07/06/2024 8:24 AM CDT Marlene Villafuerte [facility] Final Result Performing Organization Address [facility]/ZIP Co de Phone Number [facility] [address] [place] [address], [place] [phone] * GLUCOSE, GESTATIONAL SCREEN (07/06/2024 8:24 AM CDT) AMOUNT GIVEN 50 g 07/06/2024 9:34 AM CDT [facility] GLUCOSE 1 HOUR POST DOSE 110 <140 mg/dL 07/06/2024 9:42 AM CDT [facility] 07/06/2024 8:24 AM CDT Marlenemarni Villafuerte [facility] Final Result [facility] [address] [place] [address], [place] [phone] * HIV 1 ANTIGEN(S), WITH HIV-1 AND HIV-2 ANTIBODIES (07/06/2024 8:24 AM CDT) HIV 1/2 AB+ HIV1 P24 AG NON-REACTI VE NON-REACTI VE 07/06/2024 3:46 PM CDT [facility] 07/06/2024 8:24 AM CDT [facility] Final Result [facility] [address] [place] [address], [place] [phone] * ANTIBODY SCREEN (07/06/2024 8:24 AM CDT) ANTIBODY SCREEN NEGATIVE 07/06/2024 9:30 AM CDT [facility] 07/06/2024 8:24 AM CDT Marlene [facility] BLOOD BANK TEST ORDERABLES F inal Result Performing Organization Address City/[facility]/ZIP Co de Phone Number [facility] [address] [place] [address], [place] [phone] * (ABNORMAL) CBC W/DIFF AUTOMATED (07/06/2024 8:24 AM CDT) WBC 11.33(H) 4.4 - 11.0 x10'3/uL 07/06/2024 8:55 AM CDT [facility] RBC 4.10(L) 4.50 - 5.10 x10'6/uL 07/06/2024 8:55 AM CDT [facility] HGB 12.6 12.3 - 15.3 G/DL 07/06/2024 8:55 AM CDT [facility] HCT 37.3 35.9 - 44.6 % 07/06/2024 8:55 AM CDT [facility] MCV 91.0 80.0 - 96.0 FL 07/06/2024 8:55 AM CDT [facility] MCH 30.7 25.3 - 30.9 PG 07/06/2024 8:55 AM T [facility] MCHC 33.8 31.0 - 34.1 G/DL 07/06/2024 8:55 AM T [facility] RDW 13.9 12.4 - 15.1 % 07/06/2024 8:55 AM T [facility] PLT 210 151 - 353 x10'3/uL 07/06/2024 8:55 AM T [facility] MPV 10.7 9.6 - 12.0 FL 07/06/2024 8:55 AM T [facility] RBC MORPHOLOGY NORMAL 07/06/2024 8:55 AM T [facility] PLT MORPH. NORMAL 07/06/2024 8:55 AM T [facility] WBC MORPHOLOGY NORMAL 07/06/2024 8:55 AM T [facility] LYMPHOCYTES % 10.1(L) 15.8 - 45.0 % 07/06/2024 8:55 AM T [facility] NEUTROPHILS % 84.3(H) 42.1 - 71.9 % 07/06/2024 8:55 AM T [facility] MONOCYTES % 4.1(L) 5.7 - 12.5 % 07/06/2024 8:55 AM T [facility] EOSINOPHILS 0.6 0.0 - 5.6 % 07/06/2024 8:55 AM T [facility] BASOPHILS 0.2 0.0 - 1.3 % 07/06/2024 8:55 AM T [facility] ABS. NEUTROPHILS 9.55(H) 1.40 - 6.00 x10'3/uL 07/06/2024 8:55 AM CDT [facility] IMMATURE GRANS % 0.7(H) 0.0 - 0.5 % 07/06/2024 8:55 AM CDT [facility] ABS. LYMPHOCYTES 1.14 0.80 - 4.70 x10'3/uL 07/06/2024 8:55 AM CDT [facility] 07/06/2024 8:24 AM CDT us [facility] Final Result [facility] [address] [place] [address], * HEPATITIS C ANTIBODY (02/09/2024) HEPATITIS C AB non-reacti ve us Default History Genericprovider LABORATORY Final Result from Last 3 Months or Most Recently Relevant to Health Maintenance Insurance Care Teams Food Safety Technician Relationship Specialty Start Date End Date Millie Bell PA [address] [place] [address] PCP - General PHYSICIAN COMB SETTER 10/19/22
[2024-09-18 08:38] VITALS: BP 131/74; PULSE 95; RESP 18; TEMP 36.8; O2SAT 100
--- NOTE | 2024-09-18 09:51 | ED_ITS ---
HPI - General Adult General Chief complaint: Unspecified Stated complaint: to be eval for post depression Time Seen by Provider: 09/18/24 09:13 History of Present Illness HPI narrative: Patient is a 20-year-old female who presents to the ER 4 days after delivering a baby via . She presents to the ER today reporting ?I just can not do this. I am not getting any sleep. I am so anxious. I keep wondering why thought this was a good idea. I do not know how to make him happy. She is tearful upon time of examination. Patient reports this is her 1st baby. She has a history of anxiety, depression, and PTSD but has been able to manage it without medication for ?many years.Patient denies any recent fevers, abnormal drainage from her incision site, headaches, or excessive abdominal pain. She denies any other pertinent medical history. Related Data Allergies Allergy/AdvReac Type Severity Reaction Status Date / Time amoxicillin Allergy Severe Rash Verified 09/18/24 08:51 azithromycin (From Zithromax Allergy Hives Verified 09/18/24 08:51 Z-Jorden) omeprazole (From Zegerid) Allergy rash Verified 09/18/24 08:51 penicillin V (From Pen-Vee K) Allergy Red face Verified 09/18/24 08:51 sodium bicarbonate (From Allergy rash Verified 09/18/24 08:51 Zegerid) Review of Systems Review of Systems: All systems reviewed & are unremarkable except as noted in HPI and below PMFSH Past Medical History Medical History Anxiety Vitamin D deficiency disease GERD (gastroesophageal reflux disease) Seasonal allergies Family History Family History Mother Anxiety Depression Cancer of kidney Sibling Diabetes mellitus Grandparent CHF (congestive heart failure) Heart disease Grandparent Heart disease Social History Social History Smoking status: Former smoker Tobacco type: e-cigarettes/vaping Second hand tobacco smoke exposure: No Alcohol intake: never Substance use: former Substance use type: marijuana Do You Feel Safe in your Home?: Yes Lack of Transportation: No Lack of Food: Never True Current Housing: I Have Housing Concerned About Future Housing: No Difficulty Paying Gas/Electric Bills: No Difficulty Paying for Meds: No Currently Unemployed: No Education: Bachelor's Degree Difficulty w/ Childcare or Family Care: No Living arrangements: with family Occupation/Education: occupation Gender identity (if verbalized by the patient): Female Spiritual care concerns: No Exam Narrative: GENERAL: Well appearing, obese, non-toxic, in no acute distress. HEAD: Normocephalic, atraumatic. NECK: Supple. No adenopathy, no masses. RESPIRATORY: Airway patent, respirations nonlabored. Clear to auscultation bilaterally, no rales, rhonchi, wheezing. CARDIOVASCULAR: Regular rate and rhythm without murmurs, rubs, or gallops. Peripheral pulses 2+ and equal bilaterally. ABDOMINAL: Soft, nontender, nondistended, no hepatosplenomegaly. Normoactive BS. MUSCULOSKELETAL: Moves all extremities. Strength/ROM intact without gross deformities. SKIN: Warm, dry, normal color. No rashes. NEURO: A&O X3. Speech clear. Cranial nerves II-XII intact. No ataxic movements. PSYCHIATRIC: Tearful Course Vital Signs Vital signs: Vital Signs Temperature 36.8 C 09/18/24 08:38 Pulse Rate 95 09/18/24 08:38 Respiratory Rate 18 09/18/24 08:38 Blood Pressure 131/74 09/18/24 08:38 Pulse Oximetry 100 09/18/24 08:38 Temperature 36.8 C 09/18/24 08:38 Pulse Rate 95 09/18/24 08:38 Respiratory Rate 18 09/18/24 08:38 Blood Pressure 131/74 09/18/24 08:38 Pulse Oximetry 100 09/18/24 08:38 Medical Decision Making MDM Narrative Medical decision making narrative: Patient is a 20-year-old female who presents to the ER 4 days after delivering a baby via . She presents to the ER today reporting ?I just can not do this. I am not getting any sleep. I am so anxious. I keep wondering why thought this was a good idea. I do not know how to make him happy. She is tearful upon time of examination. Patient reports this is her 1st baby. She has a history of anxiety, depression, and PTSD but has been able to manage it without medication for ?many years.Patient denies any recent fevers, abnormal drainage from her incision site, headaches, or excessive abdominal pain. She denies any other pertinent medical history Diagnosis: Baby blues Consults: OBGYN (outpatient) Patient has an appointment scheduled for 1 hour from now to follow up with her OBGYN nurse. Patient Education/Shared MDM: Extensive discussion between RESTAURANT CASHIER, patient and her . She will be given a dose Ativan here in the ER. Patient strongly advised to discuss these concerns with her OBGYN nurse today. She will not be discharged home with any new prescriptions. Strict return precautions provided. Patient verbalized understanding and is in agreement with plan. Vital signs stable at time of discharge. All questions answered. *1010- Upon further discussion pt reports she has a nurse visit today and her O BGYN appointment isn't until Wednesday, in three days. Spoke with Tonya Ellis NP, who advised pt be discharged home with a prescription for Ambien to help her sleep until she sees Tonya. Pt and her verbalize understanding and are in agreement with plan. Differential Diagnosis Differential Diagnosis: Baby blues, depression, hormonal changes, anxiety Vital Signs Vital Signs: Vital Signs Temperature 36.8 C 09/18/24 08:38 Pulse Rate 95 09/18/24 08:38 Respiratory Rate 18 09/18/24 08:38 Blood Pressure 131/74 09/18/24 08:38 Pulse Oximetry 100 09/18/24 08:38 Temperature 36.8 C 09/18/24 08:38 Pulse Rate 95 09/18/24 08:38 Respiratory Rate 18 09/18/24 08:38 Blood Pressure 131/74 09/18/24 08:38 Pulse Oximetry 100 09/18/24 08:38 Discharge Plan Discharge Clinical Impression: anxiety, Feeling of sadness, Post-op pain Patient Disposition: Home Condition: Serious Instructions: Antibiotic Form, Depression (DC) Additional Instructions: Please return to the ER with any worsening symptoms. Follow-up with your OBGYN today, as planned. Take all medications as prescribed, including regularly scheduled medications. Patient Language: Bulgarian Prescriptions: New zolpidem [Ambien] 5 mg tablet 5 mg PO HS PRN (Reason: insomnia) Qty: 14 0RF No Action hydrocodone-acetaminophen 2.5-325 mg tablet 2 tablet PO Q6H PRN (Reason: pain) 7 Days Qty: 40 0RF Follow-up/Referrals: Samantha Ellis CNM [Certified Nurse Ug Designer] - (OBGYN) Millie Bell PA-C [Primary Care Provider] - Time of Disposition: 10:01
[2024-09-18] MEDS: LORazepam (*CRX) 0.5 MG TABLET PO (10:08)
--- OUTSIDE RECORDS SUMMARY | 2024-09-18 10:16 | XMS_ITS | Clinical Summary ---
Author Organization [facility] [address] Address [address] [place] [id number] Care Team Providers Care Telephone Order Supervisor Name Role Phone Unknown, Notinfile Primary Care Provider Unavail able Adan Cantrell MD Unavailable [phone] Allergies Active Allergy Reactions Criticality Noted [...] patient's age to complete this topic Insurance [facility] ACCESS CHOICE [facility] CHOICE CHOICE [facility] [place] Care Teams Telephone Order Supervisor Relationship Specialty Start Date End Date Unknown, Notinfile PCP - General 06/07/23 Adan Cantrell MD [facility] [place], [place] [id number] 06/07/23
--- OUTSIDE RECORDS SUMMARY | 2024-09-18 10:16 | XMS_ITS | Referral Summary ---
Author Organization [facility] [address] Address [address] [place] [id number] Care Team Providers Care Power Hair Clipper Name Role Phone Unknown, Notinfile Primary Care Provider Unavail able Adan Cantrell MD Unavailable Allergies Active Allergy Reactions Criticality Noted Date [...] Plan of Treatment Not on file Insurance [employer] CHOICE [facility] ACCESS CHOICE [place] CHOICE [place] Care Teams Power Hair Clipper Relationship Specialty Start Date End Date Unknown, Notinfile PCP - General 06/07/23 Adan Cantrell MD [address] [place] [address] 06/07/23
--- OUTSIDE RECORDS SUMMARY | 2024-09-18 10:16 | XMS_ITS | Clinical Summary ---
Author Organization [facility] Address [facility] [place] [address] Care Team Providers Care Pump Servicer Supervisor Name Role Phone Millie Bell Primary Care Provider [phone] Encounters Date Type Department Care Team Description 07/06/2024 7:10 AM CDT - 07/06/2024 11:59 PM CDT Hospital Encounter [facility] [address] [place] [address] Marlene Villafuerte CNM Discharge Disposition: Home or Self Care (Routine Discharge) 07/06/2024 Orders Only [facility] [address] [place] [address] Marlene Villafuerte CNM 07/06/2024 Travel from Last [...] VE NON-REACTI VE 07/06/2024 3:29 PM CDT [facility] Comment: No serologic evidence of syphilis. No follow-up necessary unless clinically indicated. 07/06/2024 8:24 AM CDT Marlene Villafuerte [facility] Final Result Performing Organization Address [facility]/ZIP Co de Phone Number [facility] [address] [place] [address], [place] [phone] * GLUCOSE, GESTATIONAL SCREEN (07/06/2024 8:24 AM CDT) AMOUNT GIVEN 50 g 07/06/2024 9:34 AM CDT [facility] GLUCOSE 1 HOUR POST DOSE 110 <140 mg/dL 07/06/2024 9:42 AM CDT [facility] 07/06/2024 8:24 AM CDT Marlenemarni Villafuerte [facility] Final Result [facility] [address] [place] [address], [place] [phone] * HIV 1 ANTIGEN(S), WITH HIV-1 AND HIV-2 ANTIBODIES (07/06/2024 8:24 AM CDT) HIV 1/2 AB+ HIV1 P24 AG NON-REACTI VE NON-REACTI VE 07/06/2024 3:46 PM CDT [facility] 07/06/2024 8:24 AM CDT [facility] Final Result [facility] [address] [place] [address], [place] [phone] * ANTIBODY SCREEN (07/06/2024 8:24 AM CDT) ANTIBODY SCREEN NEGATIVE 07/06/2024 9:30 AM CDT [facility] 07/06/2024 8:24 AM CDT [facility] BLOOD BANK TEST ORDERABLES F inal Result Performing Organization Address City/[facility]/ZIP Co de Phone Number [facility] [address] [place] [address], [place] [phone] * (ABNORMAL) CBC W/DIFF AUTOMATED (07/06/2024 8:24 AM CDT) WBC 11.33(H) 4.4 - 11.0 x10'3/uL 07/06/2024 8:55 AM CDT [facility] RBC 4.10(L) 4.50 - 5.10 x10'6/uL 07/06/2024 8:55 AM CDT [facility] HGB 12.6 12.3 - 15.3 G/DL 07/06/2024 8:55 AM CDT [facility] HCT 37.3 35.9 - 44.6 % 07/06/2024 8:55 AM CDT [facility] MCV 91.0 80.0 - 96.0 FL 07/06/2024 8:55 AM CDT [facility] MCH 30.7 25.3 - 30.9 PG 07/06/2024 8:55 AM T [facility] MCHC 33.8 31.0 - 34.1 G/DL 07/06/2024 8:55 AM T [facility] RDW 13.9 12.4 - 15.1 % 07/06/2024 8:55 AM T [facility] PLT 210 151 - 353 x10'3/uL 07/06/2024 8:55 AM T [facility] MPV 10.7 9.6 - 12.0 FL 07/06/2024 8:55 AM T [facility] RBC MORPHOLOGY NORMAL 07/06/2024 8:55 AM T [facility] PLT MORPH. NORMAL 07/06/2024 8:55 AM T [facility] WBC MORPHOLOGY NORMAL 07/06/2024 8:55 AM T [facility] LYMPHOCYTES % 10.1(L) 15.8 - 45.0 % 07/06/2024 8:55 AM T [facility] NEUTROPHILS % 84.3(H) 42.1 - 71.9 % 07/06/2024 8:55 AM T [facility] MONOCYTES % 4.1(L) 5.7 - 12.5 % 07/06/2024 8:55 AM T [facility] EOSINOPHILS 0.6 0.0 - 5.6 % 07/06/2024 8:55 AM T [facility] BASOPHILS 0.2 0.0 - 1.3 % 07/06/2024 8:55 AM T [facility] ABS. NEUTROPHILS 9.55(H) 1.40 - 6.00 x10'3/uL 07/06/2024 8:55 AM CDT [facility] IMMATURE GRANS % 0.7(H) 0.0 - 0.5 % 07/06/2024 8:55 AM CDT [facility] ABS. LYMPHOCYTES 1.14 0.80 - 4.70 x10'3/uL 07/06/2024 8:55 AM CDT [facility] 07/06/2024 8:24 AM CDT us [facility] Final Result [facility] [address] [place] [address], * HEPATITIS C ANTIBODY (02/09/2024) HEPATITIS C AB non-reacti ve us Default History Genericprovider LABORATORY Final Result from Last 3 Months or Most Recently Relevant to Health Maintenance Insurance Care Teams Pump Servicer Supervisor Relationship Specialty Start Date End Date Millie Bell PA [address] [place] [address] PCP - General PHYSICIAN PLANNING ANALYST 10/19/22
--- NOTE | 2024-09-19 15:17 | PC.NURSE ---
1517- Addendum to note written by myselfon 09/18/24 EPDS scale filled out by patient. Score 9, Alexsi Ellis CNM aware and has follow up appointment with patient to be seen on Wednesday09/20/24.
== END 2024-09-18 10:34 | disposition home or self-care (01) ==
PROVIDERS: Emergency Provider Registered Nurse; PCP Physician Assistant Medical
DX: O99.345 Other mental disorders complicating the puerperium (principal); F41.9 Anxiety disorder, unspecified; O90.6 Postpartum mood disturbance; G89.18 Other acute postprocedural pain
CPT/HCPCS: 99283; A9270